=== PATIENT | female | born 1990 | race Caucasian/White ===

== ENCOUNTER → 2018-07-28 09:01 | Outpatient (CLI) | payer OTHER, SELFPAY ==
[2018-07-28 08:04] VITALS: BMI 39.2
[2018-07-28 09:27] LABS: Absolute Neutrophil Count 4.4 X10^3/uL (2.0-7.7); Basophil# 0.01 X10^3/uL; Basophil% 0.1 % (0-1); Eosinophils% 1.3 % (0-5); Hematocrit 38.3 % (37-47); Hemoglobin 12.5 g/dl (12.0-15.0); Lymphocyte % 31.7 % (19-41); Mean Corp Hgb Conc 32.6 g/gl (32-36); Mean Corpuscular Hgb 28.7 pg (27.0-32.0); Mean Corpuscular Volume 87.8 fL (81-99); Mean Platelet Vol. 9.2 fl (6.2-12.0); Monocyte# 0.62 X10^3/uL; Monocyte% 8.2 % (0-10); Neutrophil # 4.42 X10^3/uL (2.7-7.7); Neutrophil % 58.6 % (47-70); Platelet Count 340 K/mm3 (150-450); RBC Distribution Width CV 13.5 % (11.6-14.6); RBC Distribution Width SD 42.9 fl (35.1-43.9); Red Blood Count 4.36 M/mm3 (4.2-5.4); White Blood Count 7.6 K/mm3 (4.4-11.0)
[2018-07-28 09:31] LABS: POSITIVE COUNT NO; POSITIVE DIFFERENTIAL NO; POSITIVE MORPHOLOGY NO
[2018-07-28 09:41] LABS: Glucose Challenge Gest 1H 50g 119 mg/dL (70-140)
[2018-07-28 10:46] LABS: HIV - WCH Non-Reactive (Nonreactive); Rubella IgG 33.7 IU/mL
[2018-07-28 20:28] LABS: Chlamydia Trachomatis by PCR Negative (Negative); Neisserai gonorrhoeae by PCR Negative (Negative); Probe Check PASS; Sample Adequacy Control PASS; Specimen Processing Control PASS
[2018-07-29 08:53] LABS: HEPATITIS B SURFACE AG Negative (Negative)
[2018-07-30 07:03] LABS: Rapid Plasmin Reagin (RPR) NONREACTIVE (NONREACTIVE)
[2018-08-01 10:21] LABS: HPV Reflexed? NOT INDICATED
--- OUTSIDE RECORDS SUMMARY | 2018-09-22 14:54 | XMS RPT_ITS ---
:1990 Author Organization OHIP Support Name Relationship Address Phone NEREIDA RENAE Unavailable [id number] + [place] [address] SARAH MILES Unavailable [address] + [place] [address] [facility] Unavailable [address] + [place] [address] RENAE PADRON Unavailable Unavailable + SARAH MILES Unavailable [address] + [place] [address] [facility] Unavailable [address] + [place] [address] SARAH MILES Unavailable [address] + [place] [address] [facility] Unavailable [address] + [place] [address] SARAH MILES Unavailable [address] + [place] [address] [facility] Unavailable [address] + [place] [address] SARAH MILES Unavailable [address] + [place] [address] [facility] Unavailable [address] + [place] [address] RENAE PADRON Unavailable [address] + [address] [place] [address] RENAE PADRON Unavailable [address] + [address] [place] [address] SARAH MILES Unavailable [address] + [place] [address] TERRY MILES Unavailable [address] + [place] [address] DAREK MILES Unavailable [address] + [place] [address] Sarah Miles Unavailable Unavailable + NEREIDAJACILE BARONE Unavailable [address] + [address] [place] [address] JACIEL PADRONE Unavailable [address] + [address] [place] [address] SARAH MILES Unavailable [address] + [place] [address] DAREK MILES Unavailable [address] + [place] [address] JACIEL PADRONE Unavailable [address] + [address] [place] [address] RENAE PADRON Unavailable [address] + [place] [address] SARAH MILES Unavailable [address] + [place] [address] DAREK MILES Unavailable [address] + [place] [address] Care Team Providers Name Role Phone WENCESLAO PALOMARES Attending Unavailable KAYE REEL ASSEMBLER, (Rx)ANTWON Parsons Primary Care Unavailable DR. LORENA EDEN DO Attending Unavailable KAYE REEL ASSEMBLER, (Rx)ANTWON Parsons Primary Care Unavailable ZION KAPOOR, MS. BRADLEY Attending Unavailable AKYE REEL ASSEMBLER, (Rx)ANTWON Parsons Primary Care Unavailable PRESTON VERDE Attending Unavailable PROVIDER, UNKNOWN Referring Unavailable No, PCP Primary Care Unavailable Luis A Martinezon Attending Unavailable Rama, Lorena Referring Unavailable MarcanthonyLuis Aon Attending Unavailable Rama, Lorena Referring Unavailable Marcanthony, Dasia Attending Unavailable Rama, Lorena Primary Care Unavailable Marcanthony, Dasia Referring Unavailable MarcanthonyDasia Attending Unavailable Rama, Lorena Referring Unavailable Marcanthony, Dasia Attending Unavailable Rama, Lorena Primary Care Unavailable Marcanthony, Dasia Referring Unavailable PROBLEMS PROBLEMS DATE TYPE CONDITION / CODE ATTENDING STATUS SOURCE 08/07/2018 Unknown O23.40 - Marcanthony, Active Peggy Unspecified [facility] infection of Hospital urinary tract in Repository , unspecified trimester / O23.40(ICD-10) 08/06/2018 Unknown O99.211 - Obesity Marcanthony, Active Peggy complicating [facility] , first Hospital trimester / Repository O99.211(ICD-10) 08/06/2018 Unknown Z34.91 - Encounter Marcanthony, Active [place] for supervision of [facility] normal , Hospital unspecified, first Repository trimester / Z34.91(ICD-10) 08/06/2018 Unknown O23.41 - Marcanthony, Active [place] Unspecified [facility] infection of Hospital urinary tract in Repository , first trimester / O23.41(ICD-10) 07/28/2018 Unknown Z34.90 - Encounter Marcanthony, Active [place] for supervision of [facility] normal , Hospital unspecified, Repository unspecified trimester / Z34.90(ICD-10) 07/28/2018 Unknown Z12.4 - Encounter Michelle, Active Peggy for screening for [facility] malignant neoplasm Hospital of cervix / Repository Z12.4(ICD-10) 02/10/2018 Admitting Pnctr w/o fb of VERDEcocone Diagnosis left thumb w/o N System damage to nail, Repository init / S61.032A(ICD-10) 02/10/2018 Admitting Contact with VERDEcocone Diagnosis contaminated N System hypodermic needle, Repository init encntr / W46.1XXA(ICD-10) 02/10/2018 Admitting Allergy status to VERDEcocone Diagnosis narcotic agent N System status / Repository Z88.5(ICD-10) 02/10/2018 Admitting Contact w and VERDEcocone Diagnosis exposure to N System potentially Repository hazardous body fluids / Z77.21(ICD-10) PROCEDURES PROCEDURES No Procedure Records FoundRESULTS RESULTS 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 [address] [place] [address] OFFICE VISIT Date of Service: 08/11/18 MR#: [id number] Acct: [id number] Name: CIRILO MILES Rep #: [id number] : 1990 Provider: Dasia Martinez MD Age/Sex: 27/F Location: [facility] Status: Signed Intake Vital Signs08/11/18 Body Mass Index (BMI) 39.2 08/11/18 Blood Pressure 122/78 08/11/18 Blood Pressure 122/78 H Intake Visit Reasons: viability Chief Complaint: brown discharge Outpatient Coding Specialist Required: No Is patient in pain?: No Allergies morphine Allergy (Mild, Verified 08/11/18 08:17) Other Medications vitamin#30 30 mg iron-10 mg iron-folic acid 1 mg- omg3 capsule cap PO cap 07/28/18 [History Confirmed 08/06/18] acetaminophen 325 mg capsule 325 mg PO Q6H PRN 08/06/18 [History Confirmed 08/06/18] Last Menstral Period: 05/28/18 PFSH PFSH Surgical History History of wisdom tooth extraction, class II edentulism (Acute) Hx laparoscopic cholecystectomy (Acute) Family History Mother Seizures Brother Heart defect Social History Smoking Status: Never smoker alcohol intake: current details: pre substance use type: does not use caffeine: Yes what type of physical activity do you participate in: walking seatbelt use: always do you feel safe at home: Yes 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 DateName GA/Weeks Outcome Route Bth WeighInfant GeLabor LgtAnesthesiDel LocatProvider FOB t n h a n Delivery Date: No notes to display Delivery Date: On 07/28/18 @ 08:21 Dasia Martinez IOL oligo HPI viability: Details: CIRILO MILES is a 27 year old who presents for routine OB visit. OB Visit JEFFREY Calculator Estimated Delivery Date 03/23/19 Based on Ultrasound Date 08/06/18 Current WG 8w 0d Number 1 Expected Delivery Route/Plan Specific Issue/Plans flu vaccine: given tdap vaccine: [] rhogam: [] LARC form signed: [] labor support person: [] pain management: [] cut cord/dad catch: [] : [] PP control planned: [] discussed possible routes of delivery and associated risks: [] special requests: [] Initial Weight: Not Recorded Date Weight BP Urine PFHR FuHt Pres MCTX DilatioFetal SVisit NProvideComment rot ov n t ote r s EGA Ef Gluco faced se 07/28/1225 lb 112/70 8 6w 0d Visit Notes Visit Date: 08/11/18 fht seen IUP viable no abnormality, smal brown discharge likely cervical in origin. reassurance given fu as scheduled. Dasia Martinez MD on 08/11/18 Visit Date: 08/06/18 dating us now shows 7 w 2 d Dasia Martinez MD on 08/06/18 no vb cramping. Dasia Martinez MD on 08/06/18 Visit Date: 07/28/18 No visit notes to display ACOG First Trimester First Trimester: Desire for , Alcohol, Tobacco Cessation, Illicit/Recreational Drug/Substance Use, Intimate Partner Violence, Barriers to care, Unstable Housing, Communication Barriers, Environmental/Work Hazards, Anticipated Course of Care, Toxoplasmosis Precations, Use of Any medications, Sexual activity, Exercise, Dental Care, Sauna/Hot tub use, Seat Belt use, Childbirth classes/Hospital facilities, , Travel, Indications for US and Screening for Aneuploidy Diagnostics Diagnostics Labs Blood Type A POSITIVE 07/28/18 Antibody Screen NEGATIVE 07/28/18 Hct 38.3 % (37-47) 07/28/18 Hgb 12.5 g/dl (12.0-15.0) 07/28/18 Rubella IgG Antibody 33.7 IU/mL 07/28/18 RPR NONREACTIVE (NONREACTIVE) 07/28/18 Hep Bs Antigen Negative (Negative) 07/28/18 Chlam trachomat DNA PCR Negative (Negative) 07/28/18 N.gonorrhoeae DNA (PCR) Negative (Negative) 07/28/18 Glucose 1 Hr 50 gm 119 mg/dL (70-140) 07/28/18 Details: HIV: Urine Culture: Sequential Screen: NIPT Screen: Assessment AND Plan Problems 1. Vaginal bleeding during O46.90 Plan bedside ultrasound done reassuring. 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 [address] [place] [address] OFFICE VISIT Date of Service: 08/06/18 MR#: [id number] Acct: [id number] Name: CIRILO MIELS Rep #: [id number] : 1990 Provider: Dasia Martinez MD Age/Sex: 27/F Location: [facility] Status: Signed Intake Vital Signs08/06/18 Body Mass Index (BMI) 39.2 08/06/18 Height 5 ft 3 in 08/06/18 Weight: 226 lb 08/06/18 Body Mass Index (BMI) 40.0 08/06/18 Blood Pressure 114/60 Intake Visit Reasons: est ob Chief Complaint: est ob Outpatient Coding Specialist Required: No Is patient in pain?: No Allergies morphine Allergy (Mild, Verified 08/06/18 09:44) Other Medications vitamin#30 30 mg iron-10 mg iron-folic acid 1 mg- omg3 capsule cap PO cap 07/28/18 [History Confirmed 08/06/18] acetaminophen 325 mg capsule 325 mg PO Q6H PRN 08/06/18 [History Confirmed 08/06/18] Last Menstral Period: 05/28/18 Zika: Zika virus screening: Negative : No PFSH PFSH Surgical History History of wisdom tooth extraction, class II edentulism (Acute) Hx laparoscopic cholecystectomy (Acute) Family History Mother Seizures Brother Heart defect Social History Smoking Status: Never smoker alcohol intake: current details: pre substance use type: does not use caffeine: Yes what type of physical activity do you participate in: walking seatbelt use: always do you feel safe at home: Yes 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 DateName GA/Weeks Outcome Route Bth WeighInfant GeLabor LgtAnesthesiDel LocatProvider FOB t n h a n Delivery Date: No notes to display Delivery Date: On 07/28/18 @ 08:21 Dasia Martinez IOL oligo HPI est ob: Details: CIRILO MILES is a 27 year old who presents for routine OB visit. OB Visit JEFFREY Calculator Estimated Delivery Date 03/23/19 Based on Ultrasound Date 08/06/18 Current WG 7w 2d Number 1 Expected Delivery Route/Plan Specific Issue/Plans flu vaccine: given tdap vaccine: [] rhogam: [] LARC form signed: [] labor support person: [] pain management: [] cut cord/dad catch: [] : [] PP control planned: [] discussed possible routes of delivery and associated risks: [] special requests: [] Initial Weight: Not Recorded Date Weight BP Urine PrFHR FuHt Pres MoCTX DilationFetal StVisit NoProviderComments E ot v te GA G Effac lucose ed Visit Notes Visit Date: 08/06/18 dating us now shows 7 w 2 d Dasia Martinez MD on 08/06/18 no vb cramping. Dasia Martinez MD on 08/06/18 Visit Date: 07/28/18 No visit notes to display ACOG First Trimester First Trimester: Desire for , Alcohol, Tobacco Cessation, Illicit/Recreational Drug/Substance Use, Intimate Partner Violence, Barriers to care, Unstable Housing, Communication Barriers, Environmental/Work Hazards, Anticipated Course of Care, Toxoplasmosis Precations, Use of Any medications, Sexual activity, Exercise, Dental Care, Sauna/Hot tub use, Seat Belt use, Childbirth classes/Hospital facilities, , Travel, Indications for US and Screening for Aneuploidy Diagnostics Diagnostics Labs Blood Type A POSITIVE 07/28/18 Antibody Screen NEGATIVE 07/28/18 Hct 38.3 % (37-47) 07/28/18 Hgb 12.5 g/dl (12.0-15.0) 07/28/18 Rubella IgG Antibody 33.7 IU/mL 07/28/18 RPR NONREACTIVE (NONREACTIVE) 07/28/18 Hep Bs Antigen Negative (Negative) 07/28/18 Chlam trachomat DNA PCR Negative (Negative) 07/28/18 N.gonorrhoeae DNA (PCR) Negative (Negative) 07/28/18 Glucose 1 Hr 50 gm 119 mg/dL (70-140) 07/28/18 Details: HIV: Urine Culture: Sequential Screen: NIPT Screen: Assessment AND Plan Problems 1. Obesity affecting in first trimester O99.211 1 TM glucola nl, discussed healthy weight gain 2. Urinary tract infection in mother during first trimester of O23.41 macrobid. repeat ordered. 3. Normal in first trimester Z34.91 PRR JEFFREY 03/23/19 Darek Mayfield - Sarah Plan ACOG trimester education reviewed and updated. see problem list details for updated plan management information and see below for orders placed at this visit. GA appropriate handout given. Orders Orders: Medications New: Coding Level of Care Code OB Routine Diagnoses Obesity affecting in first trimester O99.211 Trimester: first trimester Urinary tract infection in mother during first trimester of O23.41 Trimester: first trimester Normal in first trimester Z34.91 Trimester: first trimester 08/06/18 1022 <Electronically signed by Dasia Martinez MD> Date Dasia Martinez MD Cosigner Signature: Date (if applicable) CC: Observed: 08/06/2018 Status: F Source: [place] CULTURE, URINE 12:00 AM [facility] REPOSITORY Urine Culture Below infection level. Probable contaminants. ORGANISM 1: Mixed Gram Positive Organisms [place] Count <1000 Performed By: #### M100.0650 #### [facility] [address] [place], [place], [address] CBC W/DIFF, AUTOMATED Collected: 07/28/2018 Status: F Source: [place] 9:08 AM [facility] REPOSITORY TYPE CODE TESTS RESULT OUT OF RANGE REFERENCE UNITS LAB L100.1000 4.4-11.0 K/mm3 Normal WBC 7.6 LAB L100.1200 4.2-5.4 M/mm3 Normal RBC 4.36 LAB L100.1300 12.0-15.0 g/dl Normal HGB 12.5 LAB L100.1400 37-47 % Normal HCT 38.3 LAB L100.1500 81-99 fL Normal MCV 87.8 LAB L100.1600 27.0-32.0 pg Normal MCH 28.7 LAB L100.1700 32-36 g/gl Normal MCHC 32.6 LAB L100.1810 11.6-14.6 % Normal RDW CV 13.5 LAB L100.1820 35.1-43.9 fl Normal RDW SD 42.9 LAB L100.1900 150-450 K/mm3 Normal PLT 340 LAB L100.2000 6.2-12.0 fl Normal MPV 9.2 LAB L100.2100 47-70 % Normal NEUT% 58.6 LAB L100.2200 19-41 % Normal LY% 31.7 LAB L100.2300 0-10 % Normal MONO% 8.2 LAB L100.2400 0-5 % Normal EO% 1.3 LAB L100.2500 0-1 % Normal BASO% 0.1 LAB L100.2550 0.0-0.9 % Normal IM GRAN % 0.100 Result Comment: IG% - Immature Granulocytes (promyelocytes, myelocytes and metamyelocytes) > 1% indicates that a LEFT SHIFT is Present. LAB L100.2620 2.0-7.7 X10 3/uL Normal Absolute Neut 4.4 LAB L100.2720 0.83-4.51 X10 3/ul Normal Absolute Lymph 2.40 Performed By: #### L100.0100 #### [facility] [address] [place], [address] GLUCOSE CHALLENGE GEST Collected: 07/28/2018 Status: F Source: [place] 1H 50G 9:08 AM [facility] REPOSITORY TYPE CODE TESTS RESULT OUT OF RANGE REFERENCE UNITS LAB L501.0250 70-140 mg/dL Normal GLU GEST 119 50g 1H Performed By: #### L501.0250 #### [facility] [address] [place], [place], [id number] TYPE AND SCREEN Collected: 07/28/2018 Status: F Source: [place] 9:08 AM [facility] REPOSIT[facility] Order Comment: Reason for Type AND Screen/Red Cells: TYPE CODE TESTS RESULT OUT OF RANGE REFERENCE UNITS LAB B10.0800 A Normal BLOOD TYPE GEL POSITIVE LAB B100.4000 Normal Antibody NEGATIVE Screen Performed By: #### B101.7450 #### [facility] [facility] [facility] [address] RUBELLA IGG Collected: 07/28/2018 Status: F Source: [place] 9:08 AM [facility] REPOSITORY TYPE CODE TESTS RESULT OUT OF RANGE REFERENCE UNITS LAB L509.4000 IU/mL Normal Rubella IgG 33.7 Result Comment: Antibody results Interpretation of Immune Status < 5 IU/ml Presumed Non-immune 5 - < 10 IU/ml Equivocal > or = 10 IU/ml Presumed Immune Performed By: #### L509.4000, L3890.6005 #### [facility] [address] [place], [place], [id number] HIV - [facility] Collected: 07/28/2018 Status: F Source: [place] 9:08 AM [facility] REPOSITORY TYPE CODE TESTS RESULT OUT OF RANGE REFERENCE UNITS LAB L3890.6005 Nonreactive Normal HIV - [facility] Non-Reactive Performed By: #### L509.4000, L3890.6005 #### [facility] [address] [facility] [id number] HEPATITIS B SURFACE Collected: 07/28/2018 Status: F Source: [place] AG 9:08 AM [facility] REPOSITORY TYPE CODE TESTS RESULT OUT OF RANGE REFERENCE UNITS LAB L3100.0400 Negative Normal HB Negative SURF AG Result Comment: Performed at: [address] [id number] Luncheonette Manager: Albert Gupta PhD, Phone: [phone] Performed By: #### L3100.0390 #### [facility] (refer to report for specific site) refer to report for address and phone number RAPID PLASMIN REAGIN Collected: 07/28/2018 Status: F Source: [place] (RPR) 9:08 AM [facility] REPOSITORY TYPE CODE TESTS RESULT OUT OF REFERENCE UNITS RANGE LAB L700.5000 NONREACTIVE NONREACTIVE Normal RPR Performed By: #### L700.5000 #### [facility] [address] 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 [place] [address] OFFICE VISIT Date of Service: 07/28/18 MR#: [id number] Acct: [id number] Name: CIRILO MILES Rep #: [id number] : 1990 Provider: Dasia Martinez MD Age/Sex: 27/F Location: [facility] Status: Signed Intake Vital Signs07/28/18 Height 5 ft 3.5 in 07/28/18 Weight: 225 lb 07/28/18 Body Mass Index (BMI) 39.2 07/28/18 Blood Pressure 112/70 Intake Visit Reasons: NOB - LMP 05/28 Chief Complaint: NEW OB Outpatient Coding Specialist Required: No Is patient in pain?: No Allergies morphine Allergy (Mild, Verified 07/28/18 08:06) Other Medications vitamin#30 30 mg iron-10 mg iron-folic acid 1 mg- omg3 capsule cap PO cap 07/28/18 [History Confirmed 07/28/18] Last Menstral Period: 05/28/18 Zika: Zika virus screening: Negative : No PFSH PFSH Surgical History History of wisdom tooth extraction, class II edentulism (Acute) Hx laparoscopic cholecystectomy (Acute) Family History Mother Seizures Brother Heart defect Social History Smoking Status: Never smoker alcohol intake: current details: pre substance use type: does not use caffeine: Yes what type of physical activity do you participate in: walking seatbelt use: always do you feel safe at home: Yes 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 DateName GA/Weeks Outcome Route Bth WeighInfant GeLabor LgtAnesthesiDel LocatProvider FOB t n h a n Delivery Date: No notes to display Delivery Date: On 07/28/18 @ 08:21 Dasia Martinez IOL oligo HPI NOB - LMP 05/28: Details: CIRILO MILES is a 27 year old who presents for New OB visit. OB Visit JEFFREY Calculator Estimated Delivery Date 03/04/19 Based on LMP (certain) 05/28/18 Current WG 8w 5d Number 1 Comments: Limited transvaginal ultrasound performed to confirm EDC and viability. CRL is 4 mm measuring 5-6 weeks which is not consistent with LMP. FHTs present. small subchorionic hemorrhage Expected Delivery Route/Plan Specific Issue/Plans flu vaccine: given tdap vaccine: [] rhogam: [] LARC form signed: [] labor support person: [] pain management: [] cut cord/dad catch: [] : [] PP control planned: [] discussed possible routes of delivery and associated risks: [] special requests: [] Initial Weight: Not Recorded Date Weight BP Urine PrFHR FuHt Pres MoCTX DilationFetal StVisit NoProviderComments E ot v te GA G Effac lucose ed Menstrual History Last Menstral Period: 05/28/18 Reported LMP: definite Normal amount/duration: Yes On hormonal BC at conception: No Antepartum Record Genetic Screening: Congenital Heart Defect: Other, Neural Tube Defect: Other, Hemoglobinopathy Or Carrier: Other, Cystic Fibrosis: Other, Chromosome Abnormality: Other, Anibal-Sachs: Other, Hemophilia: Other, Intellectual Disability/Autism: Other, Recurrent Loss/Stillbirth: Other, Other Structural Defect: Other, Other Genetic Disease: Other, Maternal Metabolic Disorder: Other Infection History: Live with someone with TB or Exposed to TB: No, Patient or Partner has history of Genital Herpes: No, Rash or Viral illness since last mentrual period: No, Prior GBS-Infected child: No, History of STD: No, HIV Infection: No, History of Hepatitis: No, Recent travel outside of [place]: No, Concern for Hep exposure: No, Varicella immune: Yes Medical History Medical History: Positive: Operations/hospitalizations, Negative: Diabetes, Hypertension, Heart disease, Auto-immune disorder, Kidney disease/UTI, Neurologic/epilepsy, Psychiatric, Depression/ depression, Hepatitis/liver disease, Varicosities/phlebitis, Thyroid dysfunction, Trauma/domestic violence, History of blood transfusions, D (Rh) Sensitized, Pulmonary (e.g.,TB,Asthma), Seasonal allergies, Drug/latex allergies/reactions, Breast, Delivery Crew Worker surgery, Anesthetic complications, History of abnormal pap, Uterine anomaly/aracely, Infertility, Anti-retroviral treatment, Relevant family history, Other ACOG First Trimester First Trimester: Desire for , Alcohol, Tobacco Cessation, Illicit/Recreational Drug/Substance Use, Intimate Partner Violence, Barriers to care, Unstable Housing, Communication Barriers, Environmental/Work Hazards, Anticipated Course of Care, Nurtrition and weight gain, Toxoplasmosis Precations, Use of Any medications, Sexual activity, Exercise, Dental Care, Sauna/Hot tub use, Seat Belt use, Childbirth classes/Hospital facilities, , Travel, Indications for US and Screening for Aneuploidy ROS Const Denies fever(s), Reports system reviewed and no additional complaints, except as docu, Reports fatigue Eyes Reports system reviewed and no additional complaints, except as docu ENT Reports system reviewed and no additional complaints, except as docu Card Denies chest pain, Denies shortness of breath Resp Reports system reviewed and no additional complaints, except as docu, Denies shortness of breath, Denies cough GI Reports nausea, Denies abdominal pain Reports system reviewed and no additional complaints, except as docu Musc Reports system reviewed and no additional complaints, except as docu Skin/Breast Reports system reviewed and no additional complaints, except as docu Neuro Yes system reviewed and no additional complaints, except as docu Psych Reports system reviewed and no additional complaints, except as docu Endo Reports fatigue, Reports system reviewed and no additional complaints, except as docu Exam Const General: healthy appearing, comfortable, no acute distress Orientation: alert [facility] Head: normal to inspection, atraumatic, normocephalic Ears: external ears normal, hearing grossly normal bilaterally Nose: nares normal, external nose normal Mouth: oral mucosae normal Teeth and gingiva: dentition normal Eyes General: appearance normal, both eyes and all related structures Neck Neck: no lymphadenopathy, supple, normal visual inspection Thyroid: thyroid normal Chest Chest palpation AND inspection: normal inspection of the chest Breast inspection: normal inspection of the breasts, normal inspection of the axillae Breast palpation: normal palpation of the breasts, normal palpation of the axillae Resp Effort AND Inspection: normal respiratory effort GI Inspection: normal to inspection Palpation: soft, no hepatosplenomegaly General: bladder normal to palpation External Female Exam: normal external appearance, normal appearance of the urethra Urethra: normal appearance of the urethra Speculum Exam - Vagina: normal appearance of the vagina, normal vaginal discharge Speculum Exam - Cervix: normal appearance of the cervix Bimanual Exam- Vagina AND Uterus: bladder normal to palpation, normal bimanual exam, uterus non-tender, other Bimanual Exam- Adnexa, other: adnexae non-tender Skin General: no rashes or lesions noted Neuro Motor: muscle tone normal throughout, no movement abnormalities noted Extrem General: normal to inspection, full ROM Assessment AND Plan Problems 1. Obesity affecting in first trimester O99.211 1 TM glucola, discussed healthy weight gain 2. Normal in first trimester Z34.91 JEFFREY 03/04/19 PC Darek Santiago - Sarah Plan Patient oriented to practice and discussed care expectations and screenings. ACOG book offered to patient. Discussed routine and specially indicated labs if needed- patient consents to testing. see problem list details for plan information. Optional screening including carrier screenings, neural tube defect screening, sequential screening, and NIPT screening offered to patient and patient chose: considering Orders Orders: Supplemental Info ACOG book given and patient encouraged to read about nutrition, exercise, weight gain, and food avoidance in . Coding Level of Care Code OB Routine Diagnoses Obesity affecting in first trimester O99.211 Trimester: first trimester Normal in first trimester Z34.91 Trimester: first trimester 07/28/18 0852 <Electronically signed by Dasia Martinez MD> Date Dasia Martinez MD Cosigner Signature: Date (if applicable) CC: CT/NG [facility] BY PCR Collected: 07/28/2018 Status: F Source: [place] 8:10 AM [facility] REPOSITORY TYPE CODE TESTS RESULT OUT OF RANGE REFERENCE UNITS LAB L8200.2100 Negative Normal Chlam Negative Trac PCR LAB L8200.2200 Negative Normal NG by Negative PCR Performed By: #### L8200.2000 #### [facility] [address] [place], [address] Observed: 07/28/2018 Status: F Source: [place]GGY CULTURE, URINE 8:10 AM [facility] REPOSITORY Urine Culture Below infection level. ORGANISM 1: Staphylococcus species [place] Count <1000 Performed By: #### M100.0650 #### [facility] [address] [place], [address] PAP I-G W/RFX Collected: 07/28/2018 Status: F Source: [place]GG[place] HRHPV-APTIMA 8:10 AM [facility] REPOSITORY Order Comment: CYTOLOGY INFORMATION: - CLINICAL INFORMATION: - DATE LMP/MENOPAUSE: - COLLECTION VIAL: Thin Prep Vial - CLINICAL DATA ANALYST SOURCE: CERVICAL - COLLECTION TECHNIQUE: CX BROOM ONLY Specimen Comment: [id number] Specimen Comment: Source.............Cervix Specimen Comment: Other.............. Specimen Comment: No. of containers..01 ThinPrep Vial TYPE CODE TESTS RESULT OUT OF RANGE REFERENCE UNITS LAB L7400.0800 . Normal DIAGN Comment Result Comment: NEGATIVE FOR INTRAEPITHELIAL LESION AND MALIGNANCY. LAB L7400.0900 . Normal ADEQ Comment Result Comment: Satisfactory for evaluation. No endocervical component is identified. An endocervical component is not commonly seen in the patient. LAB L7400.1400 . Normal PERFORM Comment Result Comment: [address], Railroad Car Checker (ASCP) LAB L7400.5285 . Normal TEST METHOD Comment Result Comment: This liquid based ThinPrep(R) pap test was screened with the use of an image guided system. LAB L7400.2600 . Normal . COMM LAB L7400.2700 . Normal PAPSMR Comment Result Comment: The Pap smear is a screening test designed to aid in the detection of premalignant and malignant conditions of the uterine cervix. It is not a diagnostic procedure and should not be used as the sole means of detecting cervical cancer. Both false-positive and false-negative reports do occur. LAB L7400.2800 . Normal HPV RFLX Comment Result Comment: The HPV DNA reflex criteria were not met with this specimen result therefore, no HPV testing was performed. Performed at: - [facility] [id number] Luncheonette Manager: Corazon Jose MD, Phone: [phone] Performed By: #### L7400.0353 #### [facility] (refer to report for specific site) refer to report for address and phone number XR FOOT MINIMUM 3 Observed: 02/08/2018 Status: F Source: [employer] VIEWS LEFT 7:13 AM [facility] REPOSITORY ORIGINAL XR FOOT MINIMUM 3 VIEWS LEFT CLINICAL STATEMENT: pain. COMPARISON: None FINDINGS: No acute fracture or dislocation is identified. The joint spaces are maintained. There is no radiopaque foreign body. Os trigonum is present. IMPRESSION: No acute fracture or dislocation. Interpreted By: Allyssa Hoskins MD Preliminary Report By: Allyssa Hoskins MD Electronically Signed By: Allyssa Hoskins MD Dictated Date: 02/08/2018 11:16:56 AM Prelim Date: 02/08/2018 11:16:56 AM Sign Date: 02/08/2018 11:17:32 AM Observed: 12/19/2017 Status: F Source: [employer] BSA 9:59 PM [facility] REPOSITORY . MICRO - Microbiology PROCEDURE: Beta Strep Antigen with Cult if Ind [*1] SOURCE: Throat BODY SITE: COLLECTED DATE/TIME: 12/19/2017 21:59 EDT RECEIVED DATE/TIME: 12/19/2017 22:06 EDT START DATE/TIME: 12/19/2017 22:06 EDT FREE TEXT SOURCE: FINAL REPORTS Final Report [] Verified Date/Time/Personnel: 12/19/2017 22:23 EDT Antigen Screen: Negative for Group A Strep. Culture confirmation to follow. COMMENT: Recommendations suggest that all negative results be confirmed with culture. Performing Locations *1: This test was performed at: [address] Performed By: #### BSA #### [address] [address] Observed: 12/19/2017 Status: F Source: [facility] 9:59 PM [facility] REPOSITORY . MICRO - Microbiology PROCEDURE: Rapid Influenza A+B Screen w Cult if Ind [*1] SOURCE: Nasopharyngeal BODY SITE: COLLECTED DATE/TIME: 12/19/2017 21:59 EDT RECEIVED DATE/TIME: 12/19/2017 22:06 EDT START DATE/TIME: 12/19/2017 22:06 EDT FREE TEXT SOURCE: FINAL REPORTS Final Report [] Verified Date/Time/Personnel: 12/19/2017 22:35 EDT Influenza Virus Type A Specimen is positive for the presence of influenza A antigen. . Specimen is negative for the presence of influenza B antigen. . A positve result does not rule out co-infections with other pathogens or identify any specific influenza virus subtype. If the current local prevalence of the influenza virus is low, the predictive value of a positive screening test is greatly diminished. Positive screening results therefore should be interpreted along with clinical symptoms. . Detection by immunofluorescence technology. This organism causes a reportable disease. Infection Control has been notified. Results have been reported to the [place] [facility]. Performing Locations *1: This test was performed at: [address] Performed By: #### RFLU #### [address] [address] Observed: 12/19/2017 Status: F Source: [facility] 9:54 PM [facility] REPOSITORY . MICRO - Microbiology PROCEDURE: Culture Beta Strep Only [O1 *1] SOURCE: Throat BODY SITE: COLLECTED DATE/TIME: 12/19/2017 21:54 EDT RECEIVED DATE/TIME: 12/19/2017 22:23 EDT START DATE/TIME: 12/19/2017 22:23 EDT FREE TEXT SOURCE: FINAL REPORTS Final Report [] Verified Date/Time/Personnel: 12/22/2017 07:11 EDT No Beta Strep isolated at 48hrs. PRELIMINARY REPORTS Preliminary Report [] Verified Date/Time/Personnel: 12/21/2017 11:01 EDT No beta Strep isolated at 24 hours. Order Comments O1: Culture Beta Strep Only Order added by [email or web address] Performing Locations *1: This test was performed at: [facility], [address] [place] [address], [address] [place] [address] Performed By: #### BSO #### [place] [address] ALLERGIES ALLERGIES DATE TYPE / CODE NAME / CODE REACTION SEVERITY SOURCE 08/11/2018 Drug morphine/F00 Other [facility] Allergy/4160 [id number]([facility] 84990(SNOMED RM) Repository CT) ENCOUNTERS ENCOUNTERS ADMIT/DISCHARGE ACCOUNT NUMBER ADMITTING ENCOUNTER LOCATION SOURCE CLASS 08/11/2018/08/11/20 [id number] Ambulatory BMSBuilding: [place] 18 BMS.[facility] Repository 08/06/2018 [id number] Ambulatory [facility] ding:[facility] Repository 08/06/2018/08/06/20 [id number] Ambulatory BMSBuilding: [place] 18 BMS.[facility] Repository 07/28/2018 [id number] Ambulatory [facility] ding:PAVLAB Repository 07/28/2018/07/28/20 [id number] Ambulatory BMSBuilding: [place] 18 BMS.[facility] Repository 03/16/2018/03/16/20 [id number] Ambulatory AULTMANBuild [place]ny 18 ing:[facility] Repository 02/10/2018 [id number] Emergency [address]in[address] [place] [address] ERRoom: System [id number]: Repository [id number] 02/08/2018/02/09/20 [id number] Ambulatory DONNY [address] ding:[facility] Repository 12/19/2017/12/20/19 [id number] Emergency BBuilding:ER [address] Repository PAYERS PAYERS ENCOUNTER GUARANTOR PAYER SUBSCRIBER SOURCE 08/11/2018 CIRILO Romano Primary SARAH [id number] Insurance:MEDICAL MUTUAL JOHNSONDOB: [facility] Samuel HOLDER Number: [id number] [address]Azz: [id number] Repository Date:[id number] [address] () [address], [place] [address]HK: 08/11/2018 Secondary Insurance:SELF NOT GIVENUNK [place] PAY INSURANCEPolicy Community Number: Effective Hospital Date:2018-08-11 Repository 08/06/2018 CIRILO Romano Primary SARAH [id number] Insurance:MEDICAL MUTUAL JOHNSONDOB: [facility] WILLIS [facility] Number: [id number] [facility] [address]Hox: [id number] Repository Date:[id number] BOX () [address] [place], [place] [address]WP: 08/06/2018 Secondary Insurance:SELF NOT GIVENUNK [place] PAY INSURANCEPolicy Community Number: Effective Hospital Date:2018-08-06 Repository 08/06/2018 CIRILO Romano Primary SARAH [id number] Insurance:MEDICAL MUTUAL JOHNSONDOB: [facility] WILLIS [facility]Tr[facility] Health Number: [id number] View Regional Medical Center [address]Nrf: [id number] Repository Date:[id number] BOX () [address] [place] [phone]: 08/06/2018 Secondary Insurance:SELF NOT GIVENUNK [place] PAY INSURANCEPolicy Community Number: Effective Hospital Date:2018-08-06 Repository 07/28/2018 CIRILO Romano Primary SARAH [id number] Insurance:MEDICAL MUTUAL RADHADOB: [facility] WILLIS [facility]DER[facility] Number: [id number] View [facility] [address]Mie: [id number] Repository Date:[id number] BOX () [address] [place] [address]CN: 07/28/2018 Secondary Insurance:SELF NOT GIVENUNK [place] PAY INSURANCEPoly Community Number: Effective Hospital Date:2018-07-28 Repository 07/28/2018 [facility] SARAH Laguerreoster [id number] Insurance:MEDICAL MUTUAL JOHNSONDOB: [facility] [place] Number: [id number] [facility] [place] [address]Iew: [id number] Repository Date:6817-14-17KN BOX () [address] [place] [address]ZP: 07/28/2018 Secondary Insurance:SELF NOT GIVENUNK [place] PAY INSURANCEPolicy Community Number: Effective Hospital Date:2018-07-12 Repository [facility]/16/2018 [facility]: [facility] 6018Policy Number: [id number] Repository [place], [id number] [address] [place] [address]Eec: Date:2018-03-16 - [place] [id number] Name:[facility] [id number]: 330) (HP) [address] [place] [address] [phone]: (HP) () 02/10/2018 [facility]:Workers JohnsonDOB: System [id number] CompensationPolicy [id number] Repository [address] RdDalton, Number: Effective Date: [place] [address]Ndo: (HP) 02/08/2018 [facility]: Insurance:MEDICAL MUTUAL JOHNSONDOB: [facility] [id number] 6018Policy Number: [id number] Repository [place], [id number] [address] [place] [address]Swy: Date:2018-02-08 - [place] [id number] Name:BPO [id number]: (330) (HP) [address] [place] [address] [phone] 13441KE: (HP) (WP) 12/19/2017 CIRILO Villagran [facility] JOHNSONDOB: Insurance:[employer] [place] JOHNSONDOB: [facility] [id number] 6018Policy Number: [id number] Repository [facility] [place], [id number] [facility] [address]Nij: Date:2017-12-19 - [place] [id number] Name:BPO [id number]: (330) (HP) [address] [place] [address] [phone]: (HP) (WP)
== END ==
PROVIDERS: Family Provider Family Medicine; PCP Family Medicine; Referring Provider Obstetrics & Gynecology; Visit Provider Obstetrics & Gynecology
DX: Z34.90 Encounter for supervision of normal pregnancy, unspecified, unspecified trimester (principal)
CPT/HCPCS: 36415; 82950; 85025; 86592; 86703; 86762; 86850; 86900; 87086; 87088; 87340; 87491; 87591; 87624; 88175; G0145

== ENCOUNTER → 2018-08-06 17:53 | Outpatient (CLI) | payer OTHER, SELFPAY ==
[2018-08-06 10:30] VITALS: BMI 39.2
== END ==
PROVIDERS: Family Provider Family Medicine; PCP Family Medicine; Referring Provider Obstetrics & Gynecology; Visit Provider Obstetrics & Gynecology
DX: O23.40 Unspecified infection of urinary tract in pregnancy, unspecified trimester (principal); Z3A.00 Weeks of gestation of pregnancy not specified
CPT/HCPCS: 87086; 87088

== ENCOUNTER → 2018-12-27 09:54 | Outpatient (CLI) | payer OTHER, SELFPAY ==
[2018-12-27 09:43] VITALS: BMI 40.5
[2018-12-27 11:08] LABS: Glucose Challenge Gest 1H 50g 111 mg/dL (70-140)
[2018-12-27 15:35] LABS: Absolute Lymphocyte Count 2.01 X10^3/ul (0.83-4.51); Absolute Neutrophil Count 6.1 X10^3/uL (2.0-7.7); Basophil# 0.01 X10^3/uL; Basophil% 0.1 % (0-1); Eosinophil# 0.09 X10^3/uL; Hemoglobin 11.5 g/dl (12.0-15.0); Lymphocyte # 2.01 X10^3/ul (4.0); Lymphocyte % 22.7 % (19-41); Mean Corp Hgb Conc 31.9 g/gl (32-36); Mean Corpuscular Hgb 29.1 pg (27.0-32.0); Mean Corpuscular Volume 91.1 fL (81-99); Mean Platelet Vol. 9.8 fl (6.2-12.0); Monocyte# 0.63 X10^3/uL; Monocyte% 7.1 % (0-10); Neutrophil % 68.9 % (47-70); Platelet Count 291 K/mm3 (150-450); RBC Distribution Width CV 14.6 % (11.6-14.6); RBC Distribution Width SD 48.9 fl (35.1-43.9); Red Blood Count 3.95 M/mm3 (4.2-5.4); White Blood Count 8.9 K/mm3 (4.4-11.0)
[2018-12-27 15:42] LABS: POSITIVE COUNT NO; POSITIVE DIFFERENTIAL NO; POSITIVE MORPHOLOGY NO
== END ==
PROVIDERS: Family Provider Family Medicine; PCP Family Medicine; Referring Provider Nurse Practitioner Women's Health; Visit Provider Nurse Practitioner Women's Health
DX: Z34.90 Encounter for supervision of normal pregnancy, unspecified, unspecified trimester (principal)
CPT/HCPCS: 36415; 82950; 85025

== ENCOUNTER 2019-01-04 11:30 | Outpatient (CLI) | payer OTHER, SELFPAY ==
[2018-12-27 09:43] VITALS: BMI 40.5
[2019-01-04 11:49] VITALS: BMI 42.1
[2019-01-04 12:12] LABS: Hematocrit 32.6 % (37-47); Hemoglobin 10.5 g/dl (12.0-15.0); Mean Corp Hgb Conc 32.2 g/gl (32-36); Mean Corpuscular Hgb 28.8 pg (27.0-32.0); Mean Corpuscular Volume 89.6 fL (81-99); Mean Platelet Vol. 9.5 fl (6.2-12.0); Platelet Count 279 K/mm3 (150-450); RBC Distribution Width CV 14.4 % (11.6-14.6); RBC Distribution Width SD 46.1 fl (35.1-43.9); Red Blood Count 3.64 M/mm3 (4.2-5.4)
[2019-01-04 12:12] LABS: Protein, Urine (Random) 17.1 mg/dL (<11.9); Protein:Creat Ratio 176 mg/g CRE (0-200)
[2019-01-04 12:14] LABS: Scan Indicated on CBC? Y/N NO
[2019-01-04 12:21] LABS: Partial Thromboplast Time 26.9 Seconds (24.1-36.2)
[2019-01-04 12:27] LABS: AST(SGOT) 12 U/L (15-37); Alanine Aminotransfer ALT/SGPT 16 U/L (13-56); EST Glomerular Filtration Rate 203 mL/min (>60); Est Glom Filt Rate - Afr Amer 246 mL/min (>60); Estimated Creatinine Clearance 173.21 ml/min; Uric Acid 3.1 mg/dL (2.6-6.0)
--- NOTE | 2019-01-05 03:09 | OB.TRI.PN_ITS ---
Progress Notes Date of Service: 01/04/19 Progress Note: She presented for headache and epigastric pain and nausea. Normal blood pressures and negative proteinuria and normal preeclampsia labs were present. Patient was evaluated by myself and headache was improving spontaneously. Patient denies any vaginal bleeding or loss of fluid heart tones 140 moderate variability reactive no decelerations category I tracing [place]: regular- none Assessment and plan 28-year-old with headache negative preeclampsia work-up likely secondary to reassurance given reviewed preeclampsia precautions follow-up in the office as regularly scheduled Laboratory Studies: Laboratory Tests 01/04/19 01/04/19 01/04/19 Range/Units 12:00 12:00 12:00 WBC 8.0 (4.4-11.0) K/mm3 RBC 3.64 L (4.2-5.4) M/mm3 Hgb 10.5 L (12.0-15.0) g/dl Hct 32.6 L (37-47) % MCV 89.6 (81-99) fL MCH 28.8 (27.0-32.0) pg MCHC 32.2 (32-36) g/gl RDW 14.4 (11.6-14.6) % RDW Differential 46.1 H (35.1-43.9) fl Plt Count 279 (150-450) K/mm3 MPV 9.5 (6.2-12.0) fl PT 13.0 (11.7-14.9) SECONDS INR 1.0 APTT 26.9 (24.1-36.2) Seconds Creatinine 0.40 L (0.55-1.02) mg/dL Estim Creat Clear Calc 173.21 ml/min Est GFR (MDRD) Af Amer 246 (>60) mL/min Est GFR (MDRD) Non-Af 203 (>60) mL/min Uric Acid 3.1 (2.6-6.0) mg/dL AST 12 L (15-37) U/L ALT 16 (13-56) U/L U Random Total Protein (<11.9) mg/dL Urine Creatinine (NO RANGE EST.) mg/dL Protein/Creatinin Ratio (0-200) mg/g CRE 01/04/19 Range/Units 11:55 WBC (4.4-11.0) K/mm3 RBC (4.2-5.4) M/mm3 Hgb (12.0-15.0) g/dl Hct (37-47) % MCV (81-99) fL MCH (27.0-32.0) pg MCHC (32-36) g/gl RDW (11.6-14.6) % RDW Differential (35.1-43.9) fl Plt Count (150-450) K/mm3 MPV (6.2-12.0) fl PT (11.7-14.9) SECONDS INR APTT (24.1-36.2) Seconds Creatinine (0.55-1.02) mg/dL Estim Creat Clear Calc ml/min Est GFR (MDRD) Af Amer (>60) mL/min Est GFR (MDRD) Non-Af (>60) mL/min Uric Acid (2.6-6.0) mg/dL AST (15-37) U/L ALT (13-56) U/L U Random Total Protein 17.1 H (<11.9) mg/dL Urine Creatinine 96.90 (NO RANGE EST.) mg/dL Protein/Creatinin Ratio 176 (0-200) mg/g CRE
== END 2019-01-04 13:05 | disposition home or self-care (01) ==
LOC: WPOUT 11:44 → OBT 11:45
PROVIDERS: Family Provider Family Medicine; PCP Family Medicine; Referring Provider Obstetrics & Gynecology; Visit Provider Obstetrics & Gynecology
DX: O99.89 Other specified diseases and conditions complicating pregnancy, childbirth and the puerperium (principal); R51 Headache; O26.899 Other specified pregnancy related conditions, unspecified trimester; R10.13 Epigastric pain; Z3A.00 Weeks of gestation of pregnancy not specified
CPT/HCPCS: 36415; 59025; 59050; 82565; 82570; 84156; 84450; 84460; 84550; 85027; 85610; 85730; 99218; G0378

== ENCOUNTER 2019-02-22 13:55 | Outpatient (CLI) | payer OTHER, SELFPAY ==
[2019-02-22 13:44] VITALS: BMI 42.1
[2019-02-22 14:25] VITALS: BMI 43.7
[2019-02-22 14:34] LABS: Protein, Urine (Random) 25.2 mg/dL (<11.9); Protein:Creat Ratio 205 mg/g CRE (0-200)
[2019-02-22 14:50] LABS: Hematocrit 33.3 % (37-47); Hemoglobin 10.7 g/dl (12.0-15.0); Mean Corp Hgb Conc 32.1 g/gl (32-36); Mean Corpuscular Hgb 28.5 pg (27.0-32.0); Mean Corpuscular Volume 88.6 fL (81-99); Mean Platelet Vol. 9.3 fl (6.2-12.0); Platelet Count 291 K/mm3 (150-450); RBC Distribution Width CV 15.6 % (11.6-14.6); Red Blood Count 3.76 M/mm3 (4.2-5.4); Scan Indicated on CBC? Y/N NO; White Blood Count 9.2 K/mm3 (4.4-11.0)
[2019-02-22 14:54] LABS: Prothrombin Time (Protime)PT. 12.5 SECONDS (11.7-14.9)
[2019-02-22 14:55] LABS: Partial Thromboplast Time 26.8 Seconds (24.1-36.2)
[2019-02-22 15:01] LABS: AST(SGOT) 13 U/L (15-37); Alanine Aminotransfer ALT/SGPT 18 U/L (13-56); Creatinine, Serum 0.39 mg/dL (0.55-1.02); EST Glomerular Filtration Rate 206 mL/min (>60); Est Glom Filt Rate - Afr Amer 249 mL/min (>60); Estimated Creatinine Clearance 177.65 ml/min; Uric Acid 3.3 mg/dL (2.6-6.0)
--- NOTE | 2019-02-28 04:27 | OB.TRI.PN_ITS ---
Progress Notes Progress Note: elevated bp initially here to r/o preeclampsia repeat bps WNL patient asymptomatic fht 130 moderate variability reactive no decelerations category I tracing [place]: no regular a/p elevated bp now reassuring, negative lab work fu in office as scheduled reviewed preeclampsia precautions Laboratory Studies: Laboratory Tests 02/22/19 02/22/19 02/22/19 Range/Units 14:35 14:35 14:35 WBC 9.2 (4.4-11.0) K/mm3 RBC 3.76 L (4.2-5.4) M/mm3 Hgb 10.7 L (12.0-15.0) g/dl Hct 33.3 L (37-47) % MCV 88.6 (81-99) fL MCH 28.5 (27.0-32.0) pg MCHC 32.1 (32-36) g/gl RDW 15.6 H (11.6-14.6) % RDW Differential 50.0 H (35.1-43.9) fl Plt Count 291 (150-450) K/mm3 MPV 9.3 (6.2-12.0) fl PT 12.5 (11.7-14.9) SECONDS INR 1.0 APTT 26.8 (24.1-36.2) Seconds Creatinine 0.39 L (0.55-1.02) mg/dL Estim Creat Clear Calc 177.65 ml/min Est GFR (MDRD) Af Amer 249 (>60) mL/min Est GFR (MDRD) Non-Af 206 (>60) mL/min Uric Acid 3.3 (2.6-6.0) mg/dL AST 13 L (15-37) U/L ALT 18 (13-56) U/L U Random Total Protein (<11.9) mg/dL Urine Creatinine (NO RANGE EST.) mg/dL Protein/Creatinin Ratio (0-200) mg/g CRE 02/22/19 Range/Units 14:17 WBC (4.4-11.0) K/mm3 RBC (4.2-5.4) M/mm3 Hgb (12.0-15.0) g/dl Hct (37-47) % MCV (81-99) fL MCH (27.0-32.0) pg MCHC (32-36) g/gl RDW (11.6-14.6) % RDW Differential (35.1-43.9) fl Plt Count (150-450) K/mm3 MPV (6.2-12.0) fl PT (11.7-14.9) SECONDS INR APTT (24.1-36.2) Seconds Creatinine (0.55-1.02) mg/dL Estim Creat Clear Calc ml/min Est GFR (MDRD) Af Amer (>60) mL/min Est GFR (MDRD) Non-Af (>60) mL/min Uric Acid (2.6-6.0) mg/dL AST (15-37) U/L ALT (13-56) U/L U Random Total Protein 25.2 H (<11.9) mg/dL Urine Creatinine 123.00 (NO RANGE EST.) mg/dL Protein/Creatinin Ratio 205 H (0-200) mg/g CRE
== END 2019-02-22 15:40 | disposition home or self-care (01) ==
LOC: WPOUT 14:02 → WP 14:03
PROVIDERS: Family Provider Family Medicine; PCP Family Medicine; Referring Provider Obstetrics & Gynecology; Visit Provider Obstetrics & Gynecology
DX: O16.9 Unspecified maternal hypertension, unspecified trimester (principal); Z3A.00 Weeks of gestation of pregnancy not specified
CPT/HCPCS: 36415; 59025; 59050; 82565; 82570; 84156; 84450; 84460; 84550; 85027; 85610; 85730; 99218; G0378

== ENCOUNTER → 2019-02-22 17:11 | Outpatient (CLI) | payer OTHER, SELFPAY ==
[2019-02-22 14:25] VITALS: BMI 43.7
== END ==
PROVIDERS: Family Provider Family Medicine; PCP Family Medicine; Referring Provider Nurse Practitioner Women's Health; Visit Provider Nurse Practitioner Women's Health
DX: N89.8 Other specified noninflammatory disorders of vagina (principal)
CPT/HCPCS: 87070; 87205

== ENCOUNTER → 2019-03-02 12:00 | Outpatient (CLI) | payer OTHER, SELFPAY ==
[2019-03-02 11:12] VITALS: BMI 43.7
[2019-03-02 12:21] LABS: Absolute Neutrophil Count 5.8 X10^3/uL (2.0-7.7); Basophil# 0.01 X10^3/uL; Basophil% 0.1 % (0-1); Eosinophil# 0.04 X10^3/uL; Eosinophils% 0.5 % (0-5); Hematocrit 33.9 % (37-47); Lymphocyte % 22.4 % (19-41); Mean Corp Hgb Conc 32.4 g/gl (32-36); Mean Corpuscular Hgb 28.6 pg (27.0-32.0); Mean Corpuscular Volume 88.3 fL (81-99); Mean Platelet Vol. 9.3 fl (6.2-12.0); Monocyte# 0.75 X10^3/uL; Monocyte% 8.8 % (0-10); Neutrophil # 5.78 X10^3/uL (2.7-7.7); Platelet Count 276 K/mm3 (150-450); RBC Distribution Width CV 15.7 % (11.6-14.6); RBC Distribution Width SD 50.2 fl (35.1-43.9); Red Blood Count 3.84 M/mm3 (4.2-5.4); White Blood Count 8.5 K/mm3 (4.4-11.0)
[2019-03-02 12:25] LABS: POSITIVE COUNT NO; POSITIVE DIFFERENTIAL NO; POSITIVE MORPHOLOGY NO
[2019-03-02 13:23] LABS: ALB/GLOB Ratio 0.6 RATIO (0.9-2.4); AST(SGOT) 18 U/L (15-37); Alanine Aminotransfer ALT/SGPT 19 U/L (13-56); Albumin, Serum 2.5 g/dL (3.2-5.0); Alkaline Phosphatase 116 U/L (45-117); Anion Gap 9 (5-15); BUN 10 mg/dL (7-18); Calcium,Total 8.7 mg/dL (8.5-10.1); Chloride 105 mmol/L (98-107); Creatinine, Serum 0.38 mg/dL (0.55-1.02); EST Glomerular Filtration Rate 211 mL/min (>60); Est Glom Filt Rate - Afr Amer 255 mL/min (>60); Globulin 4.4 g/dL (2.2-4.2); Glucose 93 mg/dL (74-106); LDH 179 U/L (84-246); Potassium 3.6 mmol/L (3.5-5.1); Protein, Total 6.9 g/dL (6.4-8.2); Sodium Level 135 mmol/L (136-145); Uric Acid 3.4 mg/dL (2.6-6.0)
[2019-03-02 14:01] LABS: Protein, Urine (Random) 19.2 mg/dL (<11.9); Protein:Creat Ratio 239 mg/g CRE (0-200)
== END ==
PROVIDERS: Family Provider Family Medicine; PCP Family Medicine; Referring Provider Obstetrics & Gynecology; Visit Provider Obstetrics & Gynecology
DX: O16.3 Unspecified maternal hypertension, third trimester (principal); O99.212 Obesity complicating pregnancy, second trimester; Z3A.00 Weeks of gestation of pregnancy not specified
CPT/HCPCS: 36415; 80053; 82570; 83615; 84156; 84550; 85025

== ENCOUNTER → 2019-03-09 10:45 | Outpatient (CLI) | payer OTHER, SELFPAY ==
[2019-03-09 09:59] VITALS: BMI 44.3
[2019-03-09 11:10] LABS: Hemoglobin 11.2 g/dl (12.0-15.0); Red Blood Count 3.94 M/mm3 (4.2-5.4); White Blood Count 9.9 K/mm3 (4.4-11.0)
[2019-03-09 11:11] LABS: Absolute Lymphocyte Count 1.96 X10^3/ul (0.83-4.51); Absolute Neutrophil Count 7.1 X10^3/uL (2.0-7.7); Basophil# 0.01 X10^3/uL; Basophil% 0.1 % (0-1); Eosinophil# 0.04 X10^3/uL; Eosinophils% 0.4 % (0-5); Lymphocyte # 1.96 X10^3/ul (4.0); Lymphocyte % 19.7 % (19-41); Mean Corpuscular Hgb 28.4 pg (27.0-32.0); Mean Corpuscular Volume 88.8 fL (81-99); Mean Platelet Vol. 9.7 fl (6.2-12.0); Monocyte# 0.84 X10^3/uL; Monocyte% 8.5 % (0-10); Neutrophil # 7.05 X10^3/uL (2.7-7.7); POSITIVE COUNT NO; POSITIVE DIFFERENTIAL NO; POSITIVE MORPHOLOGY NO; Platelet Count 299 K/mm3 (150-450); RBC Distribution Width CV 15.6 % (11.6-14.6); RBC Distribution Width SD 50.5 fl (35.1-43.9)
[2019-03-09 11:17] LABS: ROM Internal Control Test YES-OK TO RESULT pt. (Internal QC)
[2019-03-09 11:18] LABS: ROM Patient Test Negative (Negative)
[2019-03-09 11:19] LABS: Protein, Urine (Random) 16.4 mg/dL (<11.9); Protein:Creat Ratio 198 mg/g CRE (0-200)
[2019-03-09 11:24] LABS: ALB/GLOB Ratio 0.6 RATIO (0.9-2.4); AST(SGOT) 11 U/L (15-37); Alanine Aminotransfer ALT/SGPT 18 U/L (13-56); Albumin, Serum 2.5 g/dL (3.2-5.0); Alkaline Phosphatase 116 U/L (45-117); Anion Gap 7 (5-15); BUN 12 mg/dL (7-18); BUN/Creat Ratio 27.9 RATIO (10-20); Calcium,Total 8.8 mg/dL (8.5-10.1); Chloride 107 mmol/L (98-107); Creatinine, Serum 0.43 mg/dL (0.55-1.02); EST Glomerular Filtration Rate 185 mL/min (>60); Est Glom Filt Rate - Afr Amer 224 mL/min (>60); Globulin 4.4 g/dL (2.2-4.2); Glucose 75 mg/dL (74-106); Potassium 3.9 mmol/L (3.5-5.1); Protein, Total 6.9 g/dL (6.4-8.2); Sodium Level 138 mmol/L (136-145)
== END ==
PROVIDERS: Family Provider Family Medicine; PCP Family Medicine; Referring Provider Nurse Practitioner Women's Health; Visit Provider Nurse Practitioner Women's Health
DX: O26.899 Other specified pregnancy related conditions, unspecified trimester (principal); N89.8 Other specified noninflammatory disorders of vagina; R51 Headache
CPT/HCPCS: 36415; 80053; 82570; 84112; 84156; 85025

== ENCOUNTER 2019-03-14 06:38 | Outpatient (CLI) | payer OTHER, SELFPAY ==
[2019-03-14 07:06] VITALS: BMI 44.3
[2019-03-14 07:30] VITALS: BMI 44.5
--- NOTE | 2019-03-16 04:49 | OB.TRI.PN ---
Progress Notes Date of Service: 03/14/19 Progress Note: Patient presents for irregular contractions heart tone 130 moderate variability reactive no decelerations category 1 tracing To: Irregular contractions No cervical change Assessment and plan false labor DC home reactive NST category 1 tracing reviewed labor precautions
== END 2019-03-14 08:35 | disposition home or self-care (01) ==
LOC: WPOUT 07:08 → WP 07:09
PROVIDERS: Family Provider Family Medicine; PCP Family Medicine; Referring Provider Obstetrics & Gynecology; Visit Provider Obstetrics & Gynecology
DX: O47.9 False labor, unspecified (principal); Z3A.00 Weeks of gestation of pregnancy not specified
CPT/HCPCS: 59025; 59050; 99218; G0378

== ENCOUNTER 2019-03-23 11:55 | Inpatient (IN) | payer OTHER, SELFPAY ==
[2019-03-23 09:59] VITALS: BMI 44.5
--- NOTE | 2019-03-23 12:47 | HP.PCM_ITS ---
- Problem List (1) Oligohydramnios Status: Acute (2) Oligohydramnios Status: Acute (3) Oligohydramnios in greene in third trimester Status: Acute (4) Normal Status: Acute Qualifiers: Comment: PRR JEFFREY 03/23/19 girl Darek Gastelum - Jugren (5) Obesity affecting Status: Acute Qualifiers: Comment: 1 TM glucola nl, discussed healthy weight gain (6) Status: Acute Qualifiers: Comment: carrier, genetic, and ntd screening declined. anatomy scan normal. Normal echocardiogram growth us every 4 wks. weekly , f/u growth normal (7) Segmental and somatic dysfunction of lumbar region Status: Acute (8) Segmental and somatic dysfunction of pelvic region Status: Acute (9) Segmental and somatic dysfunction of sacral region Status: Acute (10) UTI in Status: Acute Qualifiers: Comment: macrobid. repeat negative History and Physical Date of Admission: 03/23/19 Intake Vital Signs 03/23/19 Body Mass Index (BMI) 44.5 03/23/19 Height 5 ft 3 in 03/23/19 Weight: 255 lb 6 oz 03/23/19 Body Mass Index (BMI) 45.2 Intake Visit Reasons: 40 WEEK OB/NST Rfid Technician Required: No Is patient in pain?: No Allergies morphine Allergy (Mild, Verified 03/23/19 09:58) Anaphylaxis Medications vitamin#30 30 mg iron-10 mg iron-folic acid 1 mg-omg3 capsule 1 cap PO DAILY cap 07/28/18 [History Confirmed 03/23/19] acetaminophen 325 mg capsule 325 mg PO Q6H PRN 08/06/18 [History Confirmed 03/23/19] Last Menstral Period: 05/28/18 Zika: Zika virus screening: Negative : No PFSH PFSH Surgical History History of wisdom tooth extraction, class II edentulism (Acute) Hx laparoscopic cholecystectomy (Acute) Family History Mother Seizures Brother Heart defect Social History (Updated 03/23/19 @ 10:45 by Dasia Martinez MD) Smoking Status: Never smoker alcohol intake: current details: pre substance use type: does not use caffeine: Yes what type of physical activity do you participate in: walking seatbelt use: always do you feel safe at home: Yes 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 Date Name GA/Weeks Outcome Route Bth Weight Gen Labor Lgth Anesthesia Del Locatn Provider FOB Unknown 2014 Pamela live - full term 7lbs 8oz Female Alejandra Unknown 2016 Darek live - full term 9 lbs Male Donny Mora Delivery Date: On 07/28/18 @ 08:21 Dasia Martinez IOL oligo Delivery Date: No notes to display HPI 40 WEEK OB/NST: Details: CIRILO GARCIA is a 28 year old who presents for routine OB visit. upon examination and fluid check she was found to have oligohydramnios with n deedee of 3 cm OB Visit JEFFREY Calculator Estimated Delivery Date Method Current WG Current Estimate 03/23/19 Ultrasound #1 40w 0d Other Estimates 03/04/19 LMP (Certain) 42w 5d Expected Delivery Route/Plan Specific Issue/Plans flu vaccine: given tdap vaccine: given rhogam: na LARC form signed: declines labor support person: Jurgen pain management: epidural cut cord/dad catch: yes cord : yes PP control planned: condom discussed possible routes of delivery and associated risks: [] special requests: [] Initial Weight: 225 lb Date EGA Weight BP Urine Prot Glucose FHR FuHt Pres Mov CTX Dilation Effaced St Visit Note 07/28/18 6w 0d 225 lb (+0 oz) 112/70 08/06/18 7w 2d 226 lb (+16 oz) 114/60 Negative Negative 160 no vb cramping. dating us now shows 7 w 2 d 08/11/18 8w 0d 122/78 122/78 160 fht seen IUP viable no abnormality, smal brown discharge likely cervical in origin. reassurance given fu as scheduled. 09/06/18 11w 5d 224 lb (-16 oz) 140/80 Negative Negative 160 no vb discharge doing well. 10/04/18 15w 5d 225 lb 6 oz (+6 oz) 122/78 Negative Negative 160 no vb cramping some nausea, scheduled anatomy scan 11/01/18 19w 5d 229 lb (+4 lb) 120/76 Negative Negative 150 no vb cramping. us today 11/29/18 23w 5d 150 24 Active no vb lof good fm n oregular ctx 12/27/18 27w 5d 236 lb (+11 lb) 126/70 Trace Negative 148 28 Active absent No VB, LOF. Doing well 01/11/19 29w 6d 240 lb (+15 lb) 110/80 Negative Negative 145 30 Active no vb lof good fm n oregular ctx 02/03/19 33w 1d 243 lb (+18 lb) 118/60 Negative Negative 140 Active No VB, LOF. NST 02/11/19 34w 2d 246 lb 2 oz (+21 lb 2 oz) 110/62 Negative Negative 140 Active no vb lof good fm no regular ctx 02/16/19 35w 0d 247 lb (+22 lb) 118/58 Negative Negative 140 Active absent no vb lof good fm no regular ctx. reactive nst, growth us next week 02/22/19 35w 6d 247 lb 6 oz (+22 lb 6 oz) 144/70 Negative Negative 148 Cephalic Active frequent -3 work in for irreg CTX, pressure, head ache. 03/02/19 37w 0d 248 lb (+23 lb) 104/70 Negative Negative 140 Cephalic Active no vb lof good fm irregular ctx- still haveing intermittent headaches n v, will repeat labs again 03/09/19 38w 0d 250 lb 6 oz (+25 lb 6 oz) 114/58 Negative Negative 150 Cephalic Active occasional 1 -3 No VB. ?LOF last pm; headache off a nd on X 3 days. Arm weakness and vision changes 3 days ago. 03/16/19 39w 0d 255 lb (+30 lb) Negative Negative 140 Cephalic Active occasional no vb lof good fm irregular ctx 03/23/19 40w 0d 255 lb 6 oz (+30 lb 6 oz) Negative Negative 140 Cephalic Active oligo deedee 3 cm plan IOL today Visit Notes Visit Date: 03/23/19 ??oligo deedee 3 cm plan IOL today ??Dasia Martinez MD on 03/23/19 Visit Date: 03/16/19 ??no vb lof good fm irregular ctx ??Dasia Martinez MD on 03/16/19 Visit Date: 03/09/19 ??No VB. ?LOF last pm; headache off and on X 3 days. Arm weakness and vision changes 3 days ago. ??Kelsey Allen NP-C on 03/09/19 Visit Date: 03/02/19 ??no vb lof good fm irregular ctx- still haveing intermittent headaches n v, will repeat labs again ??Dasia Martinez MD on 03/02/19 Visit Date: 02/22/19 ??work in for irreg CTX, pressure, headache. ??EVER LandaC on 02/22/19 Visit Date: 02/16/19 ??no vb lof good fm no regular ctx. reactive nst, growth us next week ??Dasia Martinez MD on 02/16/19 Visit Date: 02/11/19 ??no vb lof good fm no regular ctx ??Dasia Martinez MD on 02/11/19 Visit Date: 02/03/19 ??No VB, LOF. NST ??EVER LandaC on 02/03/19 Visit Date: 01/11/19 ??no vb lof good fm n oregular ctx ??Dasia Martinez MD on 01/11/19 Visit Date: 12/27/18 ??No VB, LOF. Doing well ??EVER LandaC on 12/27/18 Visit Date: 11/29/18 ??no vb lof good fm n oregular ctx ??Dasia Martinez MD on 11/29/18 Visit Date: 11/01/18 ??no vb cramping. us today ??Dasia Martinez MD on 11/01/18 Visit Date: 10/04/18 ??no vb cramping some nausea, scheduled anatomy scan ??Dasia Martinez MD on 10/04/18 Visit Date: 09/06/18 ??no vb discharge doing well. ??Dasia Martinez MD on 09/06/18 Visit Date: 08/11/18 ??fht seen IUP viable no abnormality, smal brown discharge likely cervical in origin. reassurance given fu as scheduled. ??Dasia Martinez MD on 08/11/18 Visit Date: 08/06/18 ??dating us now shows 7 w 2 d ??Dasia Martinez MD on 08/06/18 ??no vb cramping. ??Dasia Martinez MD on 08/06/18 Visit Date: 07/28/18 ??No visit notes to display ACOG First Trimester First Trimester: Desire for , Alcohol, Tobacco Cessation, Illicit/Recreational Drug/Substance Use, Intimate Partner Violence, Barriers to care, Unstable Housing, Communication Barriers, Environmental/Work Hazards, A nticipated Course of Care, Toxoplasmosis Precations, Use of Any medications, Sexual activity, Exercise, Dental Care, Sauna/Hot tub use, Seat Belt use, Childbirth classes/Hospital facilities, , Travel, Indications for US and Screening for Aneuploidy Second Trimester Second Trimester: Signs and Symptoms of Labor, Selecting a care provider, Reproductive Life Planning, Care Planning, Tobacco Cessation, Depression/Anxiety and Intimate Partner Violence Third Trimester Third Trimester: Pain Management Plans, Labor support person(s), Immediate Larc, Movement Monitoring and Feeding Yes ; discussed Trial of Labor after Counseling or discussed Circumcision preference Diagnostics Diagnostics Labs Hct 35.0 % (37-47) L 03/09/19 Hgb 11.2 g/dl (12.0-15.0) L 03/09/19 Details: HIV: Urine Culture: Sequential Screen: NIPT Screen: ROS Const Reports system reviewed and no additional complaints, except as docu Card Reports system reviewed and no additional complaints, except as docu Resp Reports system reviewed and no additional complaints, except as docu GI Reports system reviewed and no additional complaints, except as docu, Reports nausea Reports system reviewed and no additional complaints, except as docu Musc Reports system reviewed and no additional complaints, except as docu Exam Const General: cooperative, healthy appearing, comfortable, anxious HENMT Head: normal to inspection Nose: external nose normal Face and sinus: normal facial exam Neck Neck: normal visual inspection, full ROM, no lymphadenopathy Thyroid: thyroid normal Chest Chest palpation & inspection: normal inspection of the chest Resp Effort & Inspection: normal respiratory effort GI Inspection: normal to inspection Palpation: soft, other (gravid uterus) Other: vertex and appropriate size for gestational age Other: Cervical Exam: Extrem General: pedal edema Results [id number] Office Urine Glucose Negative Last Edit by Liana Horta on 03/23/19 09:57 Office Urine Protein Negative Last Edit by Liana Horta on 03/23/19 09:57 Assessment & Plan Problems 1. Oligohydramnios without rupture of membranes in third trimester, single or unspecified fetus O41.03X0 Plan plan pitocin IOL and wren bulb gbs neg Orders Orders: OB NST Today O99.210 POC Urinalysis 2 Dip (Clinic) Today Plan Detail Goals Decrease pain and inflammation Decrease night/morning stiffness Barriers Coding Level of Care Code OB Routine Diagnoses Oligohydramnios without rupture of membranes in third trimester, single or unspecified fetus O41.03X0 ??Fetus number: single or unspecified fetus UPDATE- I have seen the patient and performed any clinically relevant updates to the history and physical exam. Dasia Martinez MD
[2019-03-23] MEDS: 0.9% Normal Saline 100 ML IV.SOLN. INTRA-UTER (12:54)
[2019-03-23 13:00] VITALS: BMI 42.5
[2019-03-23] MEDS: Lactated Ringers 1,000 ML 50 ML IV ×2 (18:20→21:08)
[2019-03-23 18:28] LABS: Group B Strep DNA By PCR Negative (Negative); Internal Control PASS; Probe Check PASS; Specimen Processing Control PASS
[2019-03-23 18:44] LABS: Absolute Lymphocyte Count 2.57 X10^3/uL (0.83-4.51); Absolute Neutrophil Count 7.9 X10^3/uL (2.0-7.7); Basophil# 0.02 X10^3/uL; Basophil% 0.2 % (0-1); Eosinophil# 0.03 X10^3/uL; Eosinophils% 0.3 % (0-5); Hematocrit 37.1 % (37-47); Lymphocyte # 2.57 X10^3/ul (4.0); Lymphocyte % 22.6 % (19-41); Mean Corp Hgb Conc 32.3 g/dL (32-36); Mean Corpuscular Hgb 29.1 pg (27.0-32.0); Mean Corpuscular Volume 89.8 fL (81-99); Mean Platelet Vol. 9.6 fl (6.2-12.0); Monocyte# 0.81 X10^3/uL; Monocyte% 7.1 % (0-10); NRBC Flagged by Analyzer 0 % (0-5); Neutrophil # 7.88 X10^3/uL (2.7-7.7); Neutrophil % 69.4 % (47-70); Platelet Count 319 K/mm3 (150-450); RBC Distribution Width CV 15.6 % (11.6-14.6); RBC Distribution Width SD 51.3 fl (35.1-43.9); Red Blood Count 4.13 M/mm3 (4.2-5.4); White Blood Count 11.4 K/mm3 (4.4-11.0)
[2019-03-23] MEDS: Oxytocin 30 units/NS 500 ml 30 UNITS/500 ML IV.SOLN IV (19:53)
[2019-03-23] MEDS: fentaNYL-bupivacaine (epidural) 100 ML BAG EPIDURAL (22:10)
[2019-03-24] MEDS: Lactated Ringers 1,000 ML 50 ML IV (01:35)
[2019-03-24] MEDS: Amnioinfusion- 0.9% NS 1,000 ML IV.SOLN. INTRA-UTER (01:40)
[2019-03-24] MEDS: fentaNYL-bupivacaine (epidural) 100 ML BAG EPIDURAL (03:01)
[2019-03-24] MEDS: Ondansetron 4 MG/2 ML Vial IV (04:00)
[2019-03-24] MEDS: Oxytocin 30 units/NS 500 ml 30 UNITS/500 ML IV.SOLN 334 UNITS IV (05:55)
--- NOTE | 2019-03-24 06:21 | PCM.OPRPT ---
Problem List (1) Oligohydramnios Status: Acute (2) Oligohydramnios Status: Acute (3) Oligohydramnios in greene in third trimester Status: Acute (4) Normal Status: Acute Qualifiers: Comment: PRR JEFFREY 03/23/19 girl Darek Gastelum - Jurgen (5) Obesity affecting Status: Acute Qualifiers: Comment: 1 TM glucola nl, discussed healthy weight gain (6) Status: Acute Qualifiers: Comment: carrier, genetic, and ntd screening declined. anatomy scan normal. Normal echocardiogram growth us every 4 wks. weekly , f/u growth normal (7) Segmental and somatic dysfunction of lumbar region Status: Acute (8) Segmental and somatic dysfunction of pelvic region Status: Acute (9) Segmental and somatic dysfunction of sacral region Status: Acute (10) UTI in Status: Acute Qualifiers: Comment: macrobid. repeat negative Vaginal Delivery Maternal Presentation: Medically Indicated Induction Induction of labor oligohydramnios KYLE of 3 cm Method of Induction: Pitocin, Katz Bulb Amniotic Membrane Rupture Type: Artificial Amniotic Fluid Description: Clear Final JEFFREY: 03/23/19 Gestational age: 40 Weeks and 1 Days Surgery/ Procedure Performed: Spontaneous Vaginal Delivery Type of Anesthesia: Epidural Description of Procedure: Patient began pushing and delivered the head in the YENNY presentation. The head was delivered atraumatically and a loose nuchal cord ?1 was identified and easily reduced over the infant's head. The anterior and posterior shoulders delivered without complication followed by the rest of the infant and the was placed on the maternal abdomen. Delayed cord clamping was employed for approximately 60 seconds. Cord was clamped and cut and gentle traction was applied to the cord and the placenta delivered spontaneously immediately following it was noted to be intact with three-vessel cord. The perineum and vagina were inspected and noted to have a second-degree perineal laceration that was repaired in the usual fashion with 3-0 Vicryl repeat. EBL was noted 300 cc. Patient and infant tolerated delivery well. Presentation: YENNY Placental Delivery Description: Spontaneous Placenta Disposition: [facility] Cord Vessel Description: 3 Vessels Cord Entanglement: None Estimated Blood Loss: 300 A gender: Female Laceration: Perineal Extension/lac, 2nd degree Medications given after delivery: IV Pitocin Complications: None
[2019-03-24] MEDS: Oxytocin 30 units/NS 500 ml 30 UNITS/500 ML IV.SOLN 167 UNITS IV (06:30)
[2019-03-24] MEDS: Naproxen 250 MG Tablet 500 MG PO ×2 (10:23→22:54)
[2019-03-24 12:10] VITALS: BP 121/59; PULSE 98; RESP 16; TEMP 36.8
[2019-03-24] MEDS: Acetaminophen 500 MG Tablet 1000 MG PO (14:42)
[2019-03-24 16:46] VITALS: BP 117/58; PULSE 100; RESP 18; TEMP 37.2
[2019-03-24 19:50] VITALS: BP 125/59; PULSE 101; RESP 16; TEMP 36.4
[2019-03-24] MEDS: oxyCODONE 5 MG Tablet PO (20:18)
[2019-03-25 00:21] VITALS: BP 113/58; PULSE 90; RESP 16; TEMP 36.6
[2019-03-25 04:38] VITALS: BP 111/54; PULSE 96; RESP 18; TEMP 36.7
[2019-03-25] MEDS: Acetaminophen 500 MG Tablet 1000 MG PO (04:45)
[2019-03-25 07:30] VITALS: BP 114/60; PULSE 88; RESP 16; TEMP 36.4
--- NOTE | 2019-03-25 07:58 | PCM.PN.OB ---
Patient Problems: Active and Suspected Problems (Last Reviewed 03/23/19 @ 09:59 by Liana Horta) Contraception management (Acute) IUD post - No PA required. Reference number [id number]. Oligohydramnios (Acute) Oligohydramnios (Acute) Oligohydramnios in greene in third trimester (Acute) Subjective: doing well no complaints pain controlled no CP SOB N V ambulating well tolerating po lochia moderate, going well - Physical Exam General: Alert, Oriented x3 Abdomen: Soft, Non Tender, - - FF below U Vital Signs Temp Pulse Resp BP 98.0 F 96 18 111/54 L 03/25/19 04:38 03/25/19 04:38 03/25/19 04:38 03/25/19 04:38 Oxygen Delivery Method Room Air Weight: 255 lb 4.725 oz Body Mass Index (BMI) 42.5 Intake and Output for Last 24 Hours 03/23/19 03/24/19 03/25/19 23:59 23:59 23:59 Output Total 700 / 700 Balance -700 / -700 Medical Necessity - Tobacco Use Smoking Status: Never smoker Assessment/Plan All Active Problems (Last Reviewed 03/23/19 @ 09:59 by Liana Horta) Contraception management (Acute) Oligohydramnios (Acute) Oligohydramnios (Acute) Oligohydramnios in greene in third trimester (Acute) Segmental and somatic dysfunction of pelvic region (Acute) Segmental and somatic dysfunction of sacral region (Acute) Segmental and somatic dysfunction of lumbar region (Acute) (Acute) UTI in (Acute) Obesity affecting (Acute) Normal (Acute) s/p PPD # 1 1. routine post delivery care 2. breast feeding- support given 3. rh positive 4. rubella immune 5. Enc stool softener 6. Plans home today
--- NOTE | 2019-03-25 08:00 | DCINST_ITS ---
Additional Instructions: If you experience any of the following, contact your healthcare provider. * Bleeding that soaks a pad every hour for 2 hours * Fever 100.4 or higher * Unrelieved incision or abdominal pain * Swelling, redness, discharge or bleeding from your incision or episiotomy site * Your incision begins to separate * Problems urinating (including inability to urinate or burning while urinating). * Visual changes * Severe headache * Flu-like symptoms * Pain or redness in one of both of your breasts * Pain, warmth, tenderness or swelling in your legs, especially the calf area * Frequent nausea and vomiting * Symptoms of depression or anxiety If you experience any of the following, call 911 or go to the nearest Emergency Room. * Chest pain * Problems breathing * Seizure activity * Partial or complete paralysis of a body part, slurred speech, weakness or drooping of the face, or a sudden inability to walk or hold your balance Allergies/Adverse Reactions: Allergies morphine Allergy (Mild, Verified 03/23/19 09:58) Anaphylaxis Medications to take at Discharge vitamin#30 30 mg iron-10 mg iron-folic acid 1 mg-omg3 capsule 1 cap PO DAILY cap 07/28/18 acetaminophen 325 mg capsule 325 mg PO Q6H PRN 08/06/18 Primary Care Physician: Brian Ontiveros DO [Primary Care Provider] - Test Results: Test results from this visit will be discussed in further detail at your follow- up appointment, if applicable.
--- NOTE | 2019-03-25 08:00 | PCM.DCVAG ---
Additional Instructions: If you experience any of the following, contact your healthcare provider. Bleeding that soaks a pad every hour for 2 hours Fever 100.4 or higher Unrelieved incision or abdominal pain Swelling, redness, discharge or bleeding from your incision or episiotomy site Your incision begins to separate Problems urinating (including inability to urinate or burning while urinating). Visual changes Severe headache Flu-like symptoms Pain or redness in one of both of your breasts Pain, warmth, tenderness or swelling in your legs, especially the calf area Frequent nausea and vomiting Symptoms of depression or anxiety If you experience any of the following, call 911 or go to the nearest Emergency Room. Chest pain Problems breathing Seizure activity Partial or complete paralysis of a body part, slurred speech, weakness or drooping of the face, or a sudden inability to walk or hold your balance Allergies/Adverse Reactions: Allergies morphine Allergy (Mild, Verified 03/23/19 09:58) Anaphylaxis Medications to take at Discharge vitamin#30 30 mg iron-10 mg iron-folic acid 1 mg-omg3 capsule 1 cap PO DAILY cap 07/28/18 acetaminophen 325 mg capsule 325 mg PO Q6H PRN 08/06/18 Primary Care Physician: Brian Ontiveros DO [Primary Care Provider] - Test Results: Test results from this visit will be discussed in further detail at your follow-up appointment, if applicable.
[2019-03-25] MEDS: Naproxen 250 MG Tablet 500 MG PO (13:31)
[2019-03-25 14:10] VITALS: BP 140/62; PULSE 109; RESP 16; TEMP 36.8
--- NOTE | 2019-03-30 16:20 | NURSING ---
Mother doing well and baby eating well. She states she has some oversupply but reviewed some tips to help. States she like Maki Garcia
== END 2019-03-25 16:30 | disposition home or self-care (01) | DRG 806 ==
PROVIDERS: Admitting Provider Obstetrics & Gynecology; Family Provider Family Medicine; PCP Family Medicine; Referring Provider Obstetrics & Gynecology; Visit Provider Obstetrics & Gynecology
DX: O41.03X0 Oligohydramnios, third trimester, not applicable or unspecified (principal); O23.43 Unspecified infection of urinary tract in pregnancy, third trimester; Z37.0 Single live birth; E66.9 Obesity, unspecified; O99.214 Obesity complicating childbirth; O69.81X0 Labor and delivery complicated by cord around neck, without compression, not applicable or unspecified; O70.1 Second degree perineal laceration during delivery; O99.89 Other specified diseases and conditions complicating pregnancy, childbirth and the puerperium; M99.03 Segmental and somatic dysfunction of lumbar region; M99.04 Segmental and somatic dysfunction of sacral region; M99.05 Segmental and somatic dysfunction of pelvic region; Z3A.40 40 weeks gestation of pregnancy
CPT/HCPCS: 59025; 59050; 85025; 86850; 86900; 87081; 87653; 99218; J7030; J7120; G0378; J2405

== ENCOUNTER → 2019-04-05 20:46 | Outpatient (CLI) | payer OTHER, SELFPAY ==
[2019-03-23 13:00] VITALS: BMI 42.5
== END ==
PROVIDERS: Family Provider Family Medicine; PCP Family Medicine; Referring Provider Obstetrics & Gynecology; Visit Provider Obstetrics & Gynecology
DX: Z39.1 Encounter for care and examination of lactating mother (principal)
CPT/HCPCS: 96152

== ENCOUNTER → 2020-02-29 14:37 | Outpatient (CLI) | payer OTHER, SELFPAY ==
[2020-02-29 14:11] VITALS: BMI 42.5
[2020-02-29 15:14] LABS: Thyroid Stim Hormone (TSH) 1.53 uIU/mL (0.358-3.74)
== END ==
LOC: PAVLAB 14:39
PROVIDERS: PCP Family Medicine; Referring Provider Nurse Practitioner Women's Health; Visit Provider Nurse Practitioner Women's Health
DX: N92.6 Irregular menstruation, unspecified (principal)
CPT/HCPCS: 36415; 84443

== ENCOUNTER → 2020-03-13 15:21 | Outpatient (CLI) | payer OTHER, SELFPAY ==
[2020-02-29 14:11] VITALS: BMI 42.5
--- NOTE | 2020-03-13 15:23 | US_ITS ---
STUDY: ULTRASOUND OF THE FEMALE PELVIS - COMPLETE REASON FOR EXAM: Female, 29 years old. IRREGULAR MENSES LMP: TECHNIQUE: Transabdominal and transvaginal TECHNICAL QUALITY: Adequate. COMPARISON: None. FINDINGS: The uterus is anteverted and is in a midline position. The uterus measures 11.2 x 7.8 x 5.1 cm. Normal uterine cervix. The endometrium measures 14.4 mm in thickness, and is hyperechoic. . There are tiny cystic areas noted suggesting possibility of adenomyosis There is no demonstrated endometrial mass. There is no demonstrated myometrial mass. I.U.D. - The patient does not have an I.U.D. Tiny nabothian cyst is noted within the lower uterine segment The right ovary is visualized. The right ovary measures 2.8 x 2.8 x 1.5 cm. There is no right ovarian cyst or ovarian mass. There is no visualized right adnexal mass or complex lesion. There is normal arterial and normal venous vascularity. The left ovary is visualized. The left ovary measures 2.6 x 2.5 x 1.8 cm. There is no left ovarian cyst or ovarian mass. There is no visualized left adnexal mass or complex lesion. There is normal arterial and normal venous vascularity. There is no fluid in the cul-de-sac. The pre void volume of the bladder was 150.95 ml. US/Transvaginal Non- IMPRESSION: Thickened endometrial lining with findings suggestive of adenomyosis. Clinical correlation recommended Electronically Signed: Ananth Simms MD at 17:32 EDT , Service support ,
--- NOTE | 2020-03-13 15:23 | US_ITS ---
STUDY: ULTRASOUND OF THE FEMALE PELVIS - COMPLETE REASON FOR EXAM: Female, 29 years old. IRREGULAR MENSES LMP: TECHNIQUE: Transabdominal and transvaginal TECHNICAL QUALITY: Adequate. COMPARISON: None. FINDINGS: The uterus is anteverted and is in a midline position. The uterus measures 11.2 x 7.8 x 5.1 cm. Normal uterine cervix. The endometrium measures 14.4 mm in thickness, and is hyperechoic. . There are tiny cystic areas noted suggesting possibility of adenomyosis There is no demonstrated endometrial mass. There is no demonstrated myometrial mass. I.U.D. - The patient does not have an I.U.D. Tiny nabothian cyst is noted within the lower uterine segment The right ovary is visualized. The right ovary measures 2.8 x 2.8 x 1.5 cm. There is no right ovarian cyst or ovarian mass. There is no visualized right adnexal mass or complex lesion. There is normal arterial and normal venous vascularity. The left ovary is visualized. The left ovary measures 2.6 x 2.5 x 1.8 cm. There is no left ovarian cyst or ovarian mass. There is no visualized left adnexal mass or complex lesion. There is normal arterial and normal venous vascularity. There is no fluid in the cul-de-sac. The pre void volume of the bladder was 150.95 ml. US/Pelvic (Non ) IMPRESSION: Thickened endometrial lining with findings suggestive of adenomyosis. Clinical correlation recommended Electronically Signed: Ananth Simms MD at 17:32 EDT , Service support ,
== END ==
PROVIDERS: PCP Family Medicine; Referring Provider Nurse Practitioner Women's Health; Visit Provider Nurse Practitioner Women's Health
DX: N92.6 Irregular menstruation, unspecified (principal)
CPT/HCPCS: 76830; 76856

== ENCOUNTER 2021-09-12 14:25 | Outpatient (CLI) | payer OTHER, SELFPAY ==
[2021-09-18 08:46] LABS: HPV APTIMA, High Risk Negative (Negative)
== END 2021-09-12 23:59 | disposition short-term general hospital (02) ==
LOC: LABSPEC 14:26
PROVIDERS: PCP Family Medicine; Visit Provider Nurse Practitioner Women's Health
DX: Z01.419 Encounter for gynecological examination (general) (routine) without abnormal findings (principal)
CPT/HCPCS: 87624; 88175; G0145

== ENCOUNTER → 2022-03-28 | Outpatient (CLI) | payer OTHER, SELFPAY ==
[2022-03-27 14:08] LABS: Amphetamine Urine VISTA NEGATIVE (<1000 ng/mL); Barbiturate Urine VISTA NEGATIVE (< 200 ng/mL); Benzodiazepine Urine VISTA NEGATIVE (< 200 ng/mL); Cocaine Urine VISTA NEGATIVE (< 300 ng/mL); Ecstacy Urine VISTA NEGATIVE (< 500 ng/mL); Methadone Urine VISTA NEGATIVE (< 300 ng/mL); PCP Urine VISTA NEGATIVE (< 25 ng/mL); THC Urine VISTA NEGATIVE (< 50 ng/mL); Vista UDS pH Range 5
[2022-03-31 22:06] LABS: Chlamydia By Nucleic Acid AMP Negative (Negative)
[2022-03-31 23:29] LABS: Gonococcus By Nucleic Acid AMP Negative (Negative)
== END | disposition home or self-care (01) ==
LOC: LABSPEC 10:12
PROVIDERS: PCP Nurse Practitioner Family; Visit Provider Obstetrics & Gynecology
DX: Z34.90 Encounter for supervision of normal pregnancy, unspecified, unspecified trimester (principal)
CPT/HCPCS: 80307; 87086; 87088; 87491; 87591

== ENCOUNTER → 2022-05-19 | Outpatient (CLI) | payer OTHER, SELFPAY ==
[2022-05-19 12:46] LABS: Absolute Lymphocyte Count 2.39 X10^3/uL (0.83-4.51); Basophil# 0.03 X10^3/uL; Basophil% 0.4 % (0-1); Eosinophil# 0.09 X10^3/uL; Eosinophils% 1.1 % (0-5); Hematocrit 36.9 % (37-47); Hemoglobin 11.7 g/dL (12.0-15.0); Lymphocyte # 2.39 X10^3/ul (0.83-4.51); Lymphocyte % 29.1 % (19-41); Mean Corp Hgb Conc 31.7 g/dL (32-36); Mean Corpuscular Hgb 28.5 pg (27.0-32.0); Mean Platelet Vol. 9.6 fl (6.2-12.0); Monocyte# 0.65 X10^3/uL; Monocyte% 7.9 % (0-10); NRBC Flagged by Analyzer 0 % (0-5); Neutrophil # 5.03 X10^3/uL (2.7-7.7); Neutrophil % 61.1 % (47-70); Platelet Count 327 K/mm3 (150-450); RBC Distribution Width CV 13.9 % (11.6-14.6); RBC Distribution Width SD 45.4 fl (35.1-43.9); White Blood Count 8.2 K/mm3 (4.4-11.0)
[2022-05-19 13:02] LABS: Glucose Challenge Gest 1H 50g 138 mg/dL (70-140)
[2022-05-19 13:45] LABS: HIV - WCH Non-Reactive (Nonreactive); Hepatitis B Surface Antigen Non-Reactive (Nonreactive); Hepatitis C Antibody Non-Reactive (Nonreactive); Rubella IgG Reactive (Nonreactive); Syphilis Antibodies Non-reactive
== END | disposition home or self-care (01) ==
LOC: LAB 11:16
PROVIDERS: PCP Nurse Practitioner Family; Referring Provider Obstetrics & Gynecology; Visit Provider Obstetrics & Gynecology
DX: Z34.90 Encounter for supervision of normal pregnancy, unspecified, unspecified trimester (principal)
CPT/HCPCS: 36415; 82950; 85025; 86703; 86762; 86780; 86803; 86850; 86900; 86901; 87340

== ENCOUNTER → 2022-08-27 | Outpatient (CLI) | payer OTHER, SELFPAY ==
[2022-08-27 13:47] LABS: Absolute Lymphocyte Count 2.35 X10^3/uL (0.83-4.51); Absolute Neutrophil Count 6.7 X10^3/uL (2.0-7.7); Basophil# 0.02 X10^3/uL; Basophil% 0.2 % (0-1); Eosinophil# 0.04 X10^3/uL; Eosinophils% 0.4 % (0-5); Hematocrit 35.9 % (37-47); Lymphocyte # 2.35 X10^3/ul (0.83-4.51); Lymphocyte % 24.2 % (19-41); Mean Corp Hgb Conc 33.4 g/dL (32-36); Mean Corpuscular Hgb 29.7 pg (27.0-32.0); Mean Corpuscular Volume 88.9 fL (81-99); Mean Platelet Vol. 9.3 fl (6.2-12.0); Monocyte# 0.63 X10^3/uL; Monocyte% 6.5 % (0-10); NRBC Flagged by Analyzer 0 % (0-5); Neutrophil # 6.67 X10^3/uL (2.7-7.7); Neutrophil % 68.5 % (47-70); Platelet Count 335 K/mm3 (150-450); RBC Distribution Width CV 14.1 % (11.6-14.6); RBC Distribution Width SD 46.1 fl (35.1-43.9); Red Blood Count 4.04 M/mm3 (4.2-5.4); White Blood Count 9.7 K/mm3 (4.4-11.0)
[2022-08-27 14:29] LABS: HIV - WCH Non-Reactive (Nonreactive); Syphilis Antibodies Non-reactive
== END | disposition home or self-care (01) ==
LOC: PAVLAB 13:33
PROVIDERS: Obstetrics & Gynecology; Registered Nurse; PCP Nurse Practitioner Family; Referring Provider Nurse Practitioner Women's Health; Visit Provider Nurse Practitioner Women's Health
DX: O09.90 Supervision of high risk pregnancy, unspecified, unspecified trimester (principal); Z3A.00 Weeks of gestation of pregnancy not specified
CPT/HCPCS: 36415; 85025; 86703; 86780

== ENCOUNTER → 2022-10-07 | Outpatient (CLI) | payer OTHER, SELFPAY | END | disposition home or self-care (01) | LOC: LABSPEC 14:27 | PROVIDERS: PCP Nurse Practitioner Family; Referring Provider Obstetrics & Gynecology; Visit Provider Obstetrics & Gynecology | DX: Z34.93 Encounter for supervision of normal pregnancy, unspecified, third trimester (principal) | CPT/HCPCS: 87077; 87081; 87186 ==

== ENCOUNTER 2022-10-27 18:50 | Inpatient (IN) | payer OTHER, SELFPAY ==
[2022-10-27 19:20] VITALS: BMI 47.2
[2022-10-27 19:42] VITALS: BP 132/65; PULSE 103; PULSE 108; TEMP 36.5; O2SAT 97
[2022-10-27] MEDS: Lactated Ringers 1,000 ML 50 ML IV (19:55)
[2022-10-27 20:11] LABS: Absolute Lymphocyte Count 2.25 X10^3/uL (0.83-4.51); Absolute Neutrophil Count 6.3 X10^3/uL (2.0-7.7); Basophil# 0.03 X10^3/uL; Basophil% 0.3 % (0-1); Eosinophil# 0.02 X10^3/uL; Eosinophils% 0.2 % (0-5); Hematocrit 36.6 % (37-47); Hemoglobin 11.6 g/dL (12.0-15.0); Lymphocyte # 2.25 X10^3/ul (0.83-4.51); Lymphocyte % 23.9 % (19-41); Mean Corp Hgb Conc 31.7 g/dL (32-36); Mean Corpuscular Hgb 28.8 pg (27.0-32.0); Mean Corpuscular Volume 90.8 fL (81-99); Mean Platelet Vol. 9.8 fl (6.2-12.0); Monocyte# 0.78 X10^3/uL; Monocyte% 8.3 % (0-10); NRBC Flagged by Analyzer 0 % (0-5); Neutrophil # 6.31 X10^3/uL (2.7-7.7); Neutrophil % 66.9 % (47-70); Platelet Count 352 K/mm3 (150-450); RBC Distribution Width CV 14.7 % (11.6-14.6); RBC Distribution Width SD 48.8 fl (35.1-43.9); Red Blood Count 4.03 M/mm3 (4.2-5.4); White Blood Count 9.4 K/mm3 (4.4-11.0)
[2022-10-27] MEDS: miSOPROStol 25 MCG TABLET PO (20:30)
[2022-10-27 20:59] VITALS: BP 139/69
[2022-10-27 21:00] VITALS: PULSE 101; TEMP 36.6; O2SAT 98
[2022-10-27 22:05] LABS: Bedside Glucose 114 mg/dL (74-106)
[2022-10-27 22:05] LABS: Bedside Glucose 104 mg/dL (74-106)
[2022-10-27 22:37] VITALS: BP 130/75; PULSE 101; TEMP 36.2
[2022-10-27 22:38] VITALS: PULSE 99; O2SAT 97
[2022-10-27 23:00] LABS: Bedside Glucose 98 mg/dL (74-106)
[2022-10-28] VITALS (19 sets, daily range): BP systolic 102–138; BP diastolic 49–90; PULSE 89–100; RESP 12–20; TEMP 35.9–36.6; O2SAT 95–100
[2022-10-28] MEDS: miSOPROStol 50 MCG TABLET PO (00:38)
[2022-10-28] MEDS: Penicillin G 3,000,000 Units 50 ML 100 UNITS IV ×2 (01:45→06:08)
[2022-10-28 02:11] LABS: Bedside Glucose 114 mg/dL (74-106)
[2022-10-28 03:15] LABS: Bedside Glucose 102 mg/dL (74-106)
--- NOTE | 2022-10-28 03:51 | HP.PCM.OB_ITS ---
HPI - General General Date of Admission: 10/27/22 HPI Narrative CIRILO GARCIA, is a 32 F who presents at 38+6 for IOL for uncontrolled diabetes, managed on NPH. Maternal Data Information JEFFREY Calculator Estimated Delivery Date Method Current WG Current Estimate 11/04/22 LMP (Certain) 39w 0d Other Estimates 11/18/22 Ultrasound #1 37w 0d 11/06/22 Ultrasound #2 38w 5d PFSH PFSH Medical History (Updated 10/28/22 @ 03:58 by Mikaela Villanueva CNM) Autoimmune disease pyelectasis Gestational diabetes hemorrhage Home Medications atomoxetine 40 mg capsule 40 mg PO DAILY 09/12/21 [History Last Taken Unknown] PNV-iron 29 mg-folic acid 1 mg-omega3 250 mg-dha 200mg oral combo pack 1 pkg PO DAILY 03/26/22 [History Last Taken 10/20/22 08:00] insulin NPH isoph U-100 human 100 unit/mL subcutaneous suspension 5 unit subcut QPM GDM 10/27/22 [History Last Taken 10/27/22 10:00] insulin syr/ndl U100 half jennifer 0.5 mL 29 gauge x 1/2 10/27/22 [History Last Taken Unknown] Allergy/AdvReac Type Severity Reaction Status Date / Time morphine Allergy Mild Anaphylaxis Verified 10/27/22 20:35 Family History Mother Seizures Brother Heart defect Surgical History History of wisdom tooth extraction, class II edentulism Hx laparoscopic cholecystectomy Social History adopted: No household members: spouse, family and children housing: house number of children: 3 current occupational status: employed current occupation: [employer] current occupational exposures/hazards: Yes pets and animals: Yes (Not managing litterbox) pets and animals: cat(s) history of recent travel: No sexually active: Yes Smoking Status: Never smoker alcohol intake: current details: pre substance use type: does not use diet: lactose free well-balanced diet: daily or most days caffeine: Yes Type: coffee Number of servings: 1 eating out: rarely or never what type of physical activity do you participate in: walking frequency: 3-4 times per week duration: 30-45 minutes/day toro/taoist: None seatbelt use: always do you feel safe at home: Yes 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 Date Name GA/Weeks Outcome Route Bth Weight Gen Labor Lgth Anesthesia Del Locatn Provider FOB Unknown 2014 Pamela live - full term 7lbs 8oz Female [facility] Unknown 2016 Darek live - full term 9 lbs Male [facility] 03/24/19 Alban 40 live - full term Female epi dural WC JASPREET Delivery Date: Last Updated by: Dasia Martinez MD IOL oligo Delivery Date: 03/24/19 Last Updated by: Blanca Morales oligo Visit Details Expected Delivery Route/Plan Labor Preferences- CB/BF classes: no labor support person: Jurgen labor intervention preferences: [] pain management options preferred: epidural cut cord/dad catch: cord : yes PP control planned: discussed discussed possible routes of delivery and associated risks: [] special requests: [] Plans Covid status: had Flu vaccine: may 2022 Tdap vaccine: gvien Rhogam: na LARC form signed: yes movement and labor precautions reviewed. Problem list reviewed and updated with the most current plan of care details and appropriate orders placed. Relevant counseling for the gestational age provided. Continue routine care and follow up unless otherwise noted in visit notes/problem list details OB Flowsheet Initial Weight: Not Recorded Date -?-?-?-?-?-?-?--?-?-?-?-?- EGA Weight BP Urine Prot -?-?-?-?-?-?-?-?-?-?-?-?- Glucose FHR FuHt Pres Dilation -?-?-?-?-?-?-?-?-?-?-?-?- Effaced St Visit Note 03/27/22 -?-?-?-?-?-?-?-?-?-?-?-?- 8w 2d 233 lb 8 oz 126/78 -?-?-?-?-?-?-?-?-?-?-?-?- -?-?-?-?-?-?-?-?-?-?-?-?- JV- JV-crl not consitent with lm p. new due date 11/1804/25/22 -?-?-?-?-?-?-?-?-?-?-?-?- 12w 3d 234 lb 142/82 -?-?-?-?-?-?-?-?-?-?-?-?- 150 -?-?-?-?-?-?-?-?-?-?-?-?- JV- new CRL tod ay now looks consistent with LMP. JEFFREY 11/04/21. glucola ordered. 05/19/22 -?-?-?-?-?-?-?-?-?-?-?-?- 15w 6d 244 lb 4 oz 118/74 Nega tive -?-?-?-?-?-?-?-?-?-?-?-?- Negative 151 -?-?-?-?-?-?-?-?-?-?-?-?- MH-No VB, LOF. F eeling flutters. Will do labs today, GCT. MFM US ordered. 06/17/22 -?-?-?-?-?-?-?-?-?-?-?-?- 20w 0d 250 lb 4 oz 124/71 Nega tive -?-?-?-?-?-?-?-?-?-?-?-?- Negative 152 -?-?-?-?-?-?-?-?-?-?-?-?- MH-No VB, LOF. F eeling movement. No concerns 07/18/22 -?-?-?-?-?-?-?-?-?-?-?-?- 24w 3d 255 lb 4 oz 124/76 Nega tive -?-?-?-?-?-?-?-?-?-?-?-?- Negative 145 30 -?-?-?-?-?-?-?-?-?-?-?-?- JV- gct ordered but pt may want to just monitor glucose levels. she had very low glucose after 3 hr. pt has abdominal obesity. unable to accurately monitor fundal height today. 08/13/22 -?-?-?-?-?-?-?-?-?-?-?-?- 28w 1d 258 lb 126/75 Negative -?-?-?-?-?-?-?-?-?-?-?-?- Negative 140 30 -?-?-?-?-?-?-?-?-?-?-?-?- LC- no vb/ctx/lo f. good fm. will monitor glucose levels instead of GCT. will obtain remaining 28 week labs. LC- no vb/ctx/lof. good fm. will monitor glucose levels instead of GCT. will obtain remaining 28 week labs. declines LARC. desires PPTL. tdap given today. 08/27/22 -?-?-?-?-?-?-?-?-?-?-?-?- 30w 1d 259 lb 6 oz 120/74 Nega tive -?-?-?-?-?-?-?-?-?-?-?-?- Negative 164 32 -?-?-?-?-?-?-?-?-?-?-?-?- 09/09/22 -?-?-?-?-?-?-?-?-?-?-?-?- 32w 0d 261 lb 122/74 Negative -?-?-?-?-?-?-?-?-?-?-?-?- Negative 152 33 -?-?-?-?-?-?-?-?-?-?-?-?- MH-No VB, LOF. G ood Fm. MFM US 09/11 for kidneys/growth. 09/24/22 -?-?-?-?-?-?-?-?-?-?-?-?- 34w 1d 264 lb 8 oz 125/69 Nega tive -?-?-?-?-?-?-?-?-?-?-?-?- Negative 155 39 40 -?-?-?-?-?-?-?-?-?-?-?-?- JV- u/s on 09/12 showed persistence of pyelectasis and now AC is 85th%. recommend continued fasting glucose testing and to call if levels over 90. has rpt scan in 3 weeks. 10/07/22 -?-?-?-?-?-?-?-?-?-?-?-?- 36w 0d 263 lb 132/78 -?-?-?-?-?-?-?-?-?-?-?-?- 155 140 -?-?-?-?-?-?-?-?-?-?-?-?- SM- no vb lof go od fm no regular ctx- needs to start insulin waiting for pharmacy. 10/15/22 -?-?-?-?-?-?-?-?-?-?-?-?- 37w 1d 266 lb 4 oz 121/79 Nega tive -?-?-?-?-?-?-?-?-?-?-?-?- Negative 130 40 Cephalic -?-?-?-?-?-?-?-?-?-?-?-?- JV- still has no t started insulin. she is worried about bottoming out at night. plan for am NPH for a few days. return thursday for rpt nst and discuss. plan IOL either or . 10/17/22 -?-?-?-?-?-?-?-?-?-?-?-?- 37w 3d 264 lb 4 oz 115/77 Nega tive -?-?-?-?-?-?-?-?-?-?-?-?- Negative 130 -?-?-?-?-?-?-?-?-?-?-?-?- SM- no vb lof NS T done and gbs 10/21/22 -?-?-?-?-?-?-?-?-?-?-?-?- 38w 0d 265 lb 2 oz 115/60 -?-?-?-?-?-?-?-?-?-?-?-?- 130 0.5 -?-?-?-?-?-?-?-?-?-?-?-?- SM- no vb lof go od fm no regular ctx set up IOL NST FHR Rate Baby A Baseline: 130 Variability:: Moderate Accelerations:: 15 x 15 Decelerations:: None NST Reactive:: Yes FHR Category:: Category I ROS Cardiovascular Cardiovascular: Denies abdominal pain, chest pain, diaphoresis or dyspnea Genitourinary Genitourinary: Reports change in urinary stream Musculoskeletal Musculoskeletal: Reports none Integumentary Integumentary: Reports none Neurologic Neurologic: Reports none Psychiatric Psychiatric: Reports none Endocrine Endocrinology: Reports none Hematologic/Lymphatic Hematologic/Lymphatic: Reports none Allergic/Immunologic Allergic/Immunologic: Reports none Vital Signs Vital Signs Vital Signs: 10/27/22 19:42 10/27/22 19:42 10/27/22 19:42 Temperature Temperature Source Pulse Rate 108 H Blood Pressure 132/65 H BP Systolic 132 BP Diastolic 65 Pulse Ox 97 10/27/22 19:42 10/27/22 19:42 10/27/22 19:42 Temperature 97.7 F L Temperature Source Temporal Pulse Rate 103 H Blood Pressure BP Systolic BP Diastolic Pulse Ox 10/27/22 20:59 10/27/22 21:00 10/27/22 21:00 Temperature Temperature Source Pulse Rate 101 H Blood Pressure 139/69 H BP Systolic 139 BP Diastolic 69 Pulse Ox 98 10/27/22 21:00 10/27/22 21:00 10/27/22 22:37 Temperature 97.9 F Temperature Source Temporal Pulse Rate Blood Pressure 130/75 H BP Systolic 130 BP Diastolic 75 Pulse Ox 10/27/22 22:37 10/27/22 22:37 10/27/22 22:38 Temperature Temperature Source Temporal Pulse Rate 101 H 99 Blood Pressure BP Systolic BP Diastolic Pulse Ox 10/27/22 22:38 10/27/22 22:37 10/28/22 00:32 Temperature 97.1 F L Temperature Source Pulse Rate Blood Pressure 123/90 H BP Systolic 123 BP Diastolic 90 Pulse Ox 97 10/28/22 00:32 10/28/22 00:33 10/28/22 00:33 Temperature Temperature Source Pulse Rate 100 100 Blood Pressure BP Systolic BP Diastolic Pulse Ox 97 10/28/22 00:32 10/28/22 00:32 10/28/22 02:52 Temperature 97.3 F L Temperature Source Temporal Pulse Rate Blood Pressure 110/56 L BP Systolic 110 BP Diastolic 56 Pulse Ox 10/28/22 02:52 10/28/22 02:52 10/28/22 02:52 Temperature Temperature Source Temporal Pulse Rate 94 Blood Pressure BP Systolic BP Diastolic Pulse Ox 97 10/28/22 02:52 Temperature 97.3 F L Temperature Source Pulse Rate Blood Pressure BP Systolic BP Diastolic Pulse Ox Weight Weight: 266 lb 8.622 oz Body Mass Index (BMI) 47.2 Physical Exam Const alert, oriented x3 and no apparent distress General Appearance: cooperative, comfortable and well kempt Orientation / Consciousness: awake and oriented to person Exam Limitations: no limitations HEENT normocephalic Neck full ROM Chest inspection of chest normal Resp normal respiratory effort, normal air movement and no retractions Effort and Inspection: able to speak in complete sentences and symmetric chest movement Cardio regular rate Peripheral Pulses: pulses 2+ throughout GI normal to inspection, nondistended, normoactive bowel sounds Inspection: gravid no CVA tenderness and appearance of the vagina normal External Female Exam: normal appearance of the urethra; Negative for external lesion OB / External & Speculum: external exam normal Manual OB Exam: estimated gestational size appropriate and presentation cephalic Uterus Palpation: Negative for uterus tender Extremity normal to inspection Skin no rashes or lesions noted Neuro deep tendon reflexes 2+ bilaterally and gait normal Motor Exam: strength 5/5 throughout and clonus absent Psych Activity / Motor Behavior: appropriate eye contact Speech: normal speech Labs Labs Labs: Blood Type A POSITIVE Antibody Screen NEGATIVE Hct 36.6 % (37-47) L Hgb 11.6 g/dL (12.0-15.0) L Syphilis Total Ab Non-reactive Rubella IgG Antibody Reactive (Nonreactive) Hep Bs Antigen Non-Reactive (Nonreactive) Chlamydia DNA (YEN) Negative (Negative) Neisseria gonorrhoeae DNA (YEN) Negative (Negative) HIV 1&2 Antibody Non-Reactive (Nonreactive) Glucose 1 Hr 50 gm 138 mg/dL (70-140) Group B Strep DNA Negative (Negative) Rhogam given: No Assessment & Plan (1) Supervision of high risk , antepartum: COMMENT: [id number], JEFFREY 11/04/22, boy Darek Hair Emerson Spouse Jurgen (2) Obesity affecting : COMMENT: early gct ordered (3) Gestational diabetes: COMMENT: late diagnosis based on LGA and elevated fasting levels, insulin started. 2x weekly nsts and delivery at 39 weeks. growth 57% PLAN: monitor glucose per protocol (4) GBS (group B Streptococcus carrier), +RV culture, currently : COMMENT: PCN in labor (5) Parvovirus exposure: COMMENT: titers ordered to be drawn on l and d due to recent exposure (6) pyelectasis: COMMENT: right 8.9. Follow up 09/11/21 MFM Right now WNL. Left now 9.8. Rpt MFM US 4 wk to recheck kidney and growth. 10/12:left kidney still at 9 mm. Needs pediatric consult. (7) Encounter for induction of labor: PLAN: cytotec IOL routine admission orders PLAN: Plan Dr Martinez updated admission, exam and poc. agrees with cytotec iol overnight.
[2022-10-28 06:41] LABS: Bedside Glucose 92 mg/dL (74-106)
--- NOTE | 2022-10-28 09:43 | PN_ITS ---
Progress Note pt is comfortable in bed. Nurses report at 6:30 that the cervix is still long and 1 cm, station not identified. 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 current tracing: FHT: Moderate variability reactive no decelerations category I tracing [place]: occasional Contractions bedside ultrasound shows the head in the left mid to upper quadrant. A/P: Breech/transverse presentation- pt declines a version will proceed with section today.
[2022-10-28 10:50] LABS: Bedside Glucose 74 mg/dL (74-106)
[2022-10-28] MEDS: Acetaminophen 500 MG Tablet PO (10:54)
[2022-10-28] MEDS: Lactated Ringers 1,000 ML 999 ML IV (11:15)
[2022-10-28] MEDS: Lactated Ringers 1,000 ML 150 ML IV (12:17)
--- NOTE | 2022-10-28 12:46 | PCM.DC ---
Discharge Instructions Diet Discharge Diet: No restrictions Activity Discharge Activity: May Not Drive (for 2 weeks or while taking narcotic pain medications.), May Shower and May Take a Tub Bath (in 7 days.) May resume sexual activity in: 4-6 weeks Weight Bearing Status: Full weight bearing Lifting Restrictions: 20 pounds Dressing / Incision Call your doctor if your incision/area has: Continuous Slow Oozing, Sudden Increased Bleeding, Increased Pain/ Swelling, Increased Redness and Foul Smelling Discharge Call your doctor if you observe: Fever of 101 or Higher and Using more than 1 pad per hour Suture Line Care: Avoid Pulling/Pushing and Avoid Pinching/Bending Cleanse incision/area with: Soap & Water and Keep Dressing Clean & Dry Follow Up Care Please Follow Up With: Jailene Leal DO When: Call [phone] to make an appointment for an incision check in 1-2 weeks. Test Results: Test results from this visit will be discussed in further detail at your follow-up appointment, if applicable. Discharge Plan Admission Admit Date/Time: 10/27/22 18:50 Primary Reason for Your Visit: section Attending Provider: Mikaela Villanueva Primary Care Provider: Treva Perry NP Discharge Orders/Prescriptions Prescriptions: New hydrocodone-acetaminophen 5-325 mg tablet 1 tab PO Q4H PRN (Reason: pain) 7 Days Qty: 30 0RF naproxen 500 mg tablet 500 mg PO BID PRN (Reason: pain) Qty: 30 0RF No Action atomoxetine 40 mg capsule 40 mg PO DAILY PNV cmb 96-zfoi-QI-omega-3-dha 41-1-404-200 mg combo pack 1 pkg PO DAILY insulin NPH isoph U-100 human 100 unit/mL suspension 5 unit subcut QPM (DME) insulin syr/ndl U100 half jennifer 0.5 mL 29 gauge x 1/2 syringe See Rx Instructions .Route Rx Instructions: As directed Referrals / Follow Up: Treva Perry NP, [facility] [Primary Care Provider] - Disposition Disposition (needs filled in before D/C Order can be placed): Home, Self Care
[2022-10-28] MEDS: Sodium Citrate/Citric Acid 30 ML UDC PO (12:49)
[2022-10-28] MEDS: Oxytocin 15 Units/NS 250ml 15 UNITS/250 ML IV.SOLN 83 UNITS IV (14:15)
--- NOTE | 2022-10-28 14:38 | FALS_PTH ---
PATIENT: CIRILO GARCIA LOC: [facility] U#:[id number] AGE/SX: 32/F ROOM: WP003 RE10/27/[address]: Dr. Jailene Leal DO : 1990 BED: 1 DIS: 10/30/2022 SPEC #: [id number] RECD: 10/28/22 14:51 STATUS: ORLIN DAVIDSONAdriano #: [id number] CANDACE: 10/28/22 14:[address]: Jailene Leal DEPT: SURGICAL PATHOLOGY RECD BY: Cris Ivey ENTERED: 10/29/22 12:17 SP TYPE: FALL TUBES OTHR DR: JOLIE Castillo Tissues: Fallopian tube Procedures: Surgery Specimen Level II HEADER OPERATION: Tubal ligation PRE-OP DIAGNOSIS: Sterilization TISSUE SUBMITTED: Fallopian tubes MICROSCOPIC DIAGNOSIS Bilateral fallopian tubes, salpingectomy: Bilateral fallopian tubes, no pathologic diagnosis. Left paratubal cyst. SJ:jyothi 10/30/2022 MICROSCOPIC DESCRIPTION Slides are reviewed. GROSS DESCRIPTION Received in fixative is one container labeled with the patient's name and designated bilateral fallopian tubes, right fallopian tube with suture. The specimen consists of bilateral fallopian tubes including fimbrial ends. The right fallopian tube measures 7.0 cm in length and up to 1.0 cm in diameter and left fallopian tube measures 6.0 cm in length and 1.0 cm in diameter. Sections reveal unremarkable cut surfaces. The left fallopian tube also shows a paratubal cyst measuring 0.5 cm in greatest dimension. Shipfitters Supervisor sections are submitted in two cassettes as follows: 1 ? right fallopian tube, 2 ? left fallopian tube and paratubal cyst. / KENTON:jyothi 10/29/2022 TC:4 CPT: 05813 x2
[2022-10-28 14:53] LABS: Pathology Specimen OB SEE PATHOLOGY REPORT
[2022-10-28] MEDS: 0.9% Saline Lock 10 ML Syringe IV (15:12)
[2022-10-28] MEDS: Ketorolac 30 MG/ML Syringe IV ×2 (15:13→20:56)
--- NOTE | 2022-10-28 15:26 | OP.PCM_ITS ---
Assessment & Plan (1) : QUALIFIERS: Weeks of gestation: 38 weeks Qualified Code(s): Z3A.38 - 38 weeks gestation of COMMENT: nl anatomy Echo recommended/normal. 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 (4) Obesity affecting : COMMENT: early gct ordered (5) Gestational diabetes: COMMENT: late diagnosis based on LGA and elevated fasting levels, insulin started. 2x weekly nsts and delivery at 39 weeks. growth 57% (6) GBS (group B Streptococcus carrier), +RV culture, currently : COMMENT: PCN in labor (7) Parvovirus exposure: COMMENT: titers ordered to be drawn on l and d due to recent exposure (8) pyelectasis: COMMENT: right 8.9. Follow up 09/11/21 MFM Right now WNL. Left now 9.8. Rpt MFM US 4 wk to recheck kidney and growth. 10/12:left kidney still at 9 mm. Needs pediatric consult. (9) Breech presentation: Maternal Data Information JEFFREY Calculator Estimated Delivery Date Method Current WG Current Estimate 11/04/22 LMP (Certain) 39w 0d Other Estimates 11/18/22 Ultrasound #1 37w 0d 11/06/22 Ultrasound #2 38w 5d Details Operative Information Date of Procedure: 10/28/22 Pre-Operative Diagnosis: @ 39 weeks 0d days, breech presentation, gestational diabetes, desires permanent sterilization Post-Operative Diagnosis: @ 39 weeks 0d days, breech presentation, gestational diabetes, desires permanent sterilization Classification: ANTOINETTE Procedure Type: low transverse nursing techn #1: Monica Velasco Type of Anesthesia: Spinal Anesthesiologist: Carmelo Bashir Antibiotic Given: Ancef 3 grams IV x1 Drain: Katz to straight drain Estimated Blood Loss: 700cc Findings Description of Procedure: The patient is a a 32 y/o whp presented for induction of labor due to history of gestational diabetes. She was started on cytotec 25 mcg and then 50 mcg. Upon her cervical exam at 6:30 am the fetus was found to be in the breech presentation. A was recommended. The patient is also requesting a tubal ligaiton. Spinal anesthesia was placed without difficulty. Katz catheter was placed. The patient was placed in the dorsal supine position with leftward tilt. Patient was prepped and draped in the normal sterile fashion. Pfannenstiel skin incision was made with the scalpel and carried through to the underlying layer of fascia with the scalpel. Fascia was nicked in the midline and the incision extended laterally. The peritoneum was entered digitally. The incision was stretched and a low transverse uterine incision was made with the scalpel. The infant's feet were grasped and deliered up to the 's waist. The anterior shoulder was delivered with a sweep, the was turned counterclockwise and the posterior shoulder was swept and delivered . The head was then delivered atraumatically with the help of fundal pressure. The cord was clamped and cut and the was handed off to awaiting nurse. The cord was found to have a true knot in the cord. The placenta was delivered spontaneously immediately following and was noted to be intact and have a three- vessel cord. The uterus was exteriorized cleared of all clots and debris, and the incision was closed using #1 Vicryl. The ovaries and fallopian tubes were noted to be within normal limits. A bilateral salpingectomy was then performed by grasping the tube and cauterizing and cutting the underlying mesosalpinx to the level of the uterus. The tube was remove entirely and the same procedure was performed on the opposite side. The uterus was returned to the maternal abdomen and gutters were cleared of all clots and debris. The peritoneum was closed with 3-0 Monocryl in a running fashion. Gloves were changed prior to fascial closure. Fascia was closed with 0 PDS in a running fashion. Subcutaneous tissue was copiously irrigated and the skin was closed with 3-0 Monocryl in a subcuticular fashion. Mepilex dressing was applied without complication. Patient was taken to recovery in stable condition. Presentation: Positive for Footling Breech Amniotic Membrane Rupture Type: Spontaneous Amniotic Fluid Description: Clear Placental Delivery Description: Manual Removal Placenta Disposition: [facility] Cord Vessel Description: 3 Vessels Cord Entanglement: True Knot(s) (x 1 ) Infant A Gender: Male (1 minute): 9 (5 minute): 10 Delayed Cord Clamping: Yes Complications Risks of Surgery Discussed w/Patient: Bleeding, Anesthesia Risks, Infection, Need for Future C-Sections, Permanency, Failure Rate of 1 to 2%, Injury to surrounding structure(s) including bowel and bladder and Availability of other non-permanent control options Multi Select Codes Urinary/Genital Urinary/Genital CPT Codes: 26912 Delivery global pkg and Other Procedure See Report (bilateral salpingectomy)
[2022-10-28 15:50] LABS: Bedside Glucose 90 mg/dL (74-106)
[2022-10-28] MEDS: HYDROcodone Bitartrate/Apap 5/325 Tablet PO ×3 (16:46→22:37)
[2022-10-28] MEDS: Lactated Ringers 1,000 ML 100 ML IV (17:18)
--- NOTE | 2022-10-28 19:10 | NURSING ---
182: Dr. Leal notified that pt tearful and in 6/10 pain. MD to put in orders to increase pts pain medication.
[2022-10-28 21:11] LABS: Bedside Glucose 109 mg/dL (74-106)
[2022-10-28] MEDS: Senna/Docusate Sodium 1 Tablet PO (22:37)
[2022-10-29] VITALS (7 sets, daily range): BP systolic 108–128; BP diastolic 41–58; PULSE 77–103; RESP 16–18; TEMP 36.3–36.9; O2SAT 96–99
[2022-10-29] MEDS: Enoxaparin 40 MG/0.4 ML Syringe SC (02:21)
[2022-10-29] MEDS: HYDROcodone Bitartrate/Apap 5/325 Tablet PO ×6 (02:40→23:57)
[2022-10-29] MEDS: Ketorolac 30 MG/ML Syringe IV ×2 (02:57→08:38)
[2022-10-29 06:34] LABS: Hematocrit 29.6 % (37-47); Hemoglobin 9.5 g/dL (12.0-15.0); Mean Corp Hgb Conc 32.1 g/dL (32-36); Mean Corpuscular Hgb 29.3 pg (27.0-32.0); Mean Corpuscular Volume 91.4 fL (81-99); Mean Platelet Vol. 9.6 fl (6.2-12.0); Platelet Count 251 K/mm3 (150-450); RBC Distribution Width SD 50.4 fl (35.1-43.9); Red Blood Count 3.24 M/mm3 (4.2-5.4); White Blood Count 9.5 K/mm3 (4.4-11.0)
[2022-10-29 06:40] LABS: Bedside Glucose 80 mg/dL (74-106)
--- NOTE | 2022-10-29 07:56 | PCM.PN.OB ---
Subjective Subjective Patient doing well without complaints. Tolerating PO. Ambulating and voiding without difficulty. Feeding well. Denies chest pain, shortness of breath, calf pain/swelling, fevers, chills, lightheadedness. Objective Data Objective Data Vital Signs: Vital Signs Temp Pulse Resp BP Pulse Ox O2 Del Method 98.0 F 92 16 108/54 L 98 Room Air 10/29/22 06:15 10/29/22 06:15 10/29/22 06:15 10/29/22 06:15 10/29/22 06:15 10/29/22 06:15 Oxygen Delivery Method Room Air Weight: 266 lb 8.622 oz Body Mass Index (BMI) 47.2 Intake & Output: Intake and Output for Last 24 Hours 10/27/22 10/28/22 10/29/22 23:59 23:59 23:59 Intake Total 105 / 105 4339.17 / 4339.17 905 / 905 Output Total 1502 / 1502 650 / 650 Balance 105 / 105 2837.17 / 2837.17 255 / 255 Lab / Micro Data Result Diagrams: 10/29/22 06:12 Labs: Laboratory Results - last 24 hr 10/28/22 10:26: POC Glucose 74 10/28/22 15:17: POC Glucose 90 10/28/22 20:51: POC Glucose 109 H 10/29/22 06:08: POC Glucose 80 10/29/22 06:12: WBC 9.5, RBC 3.24 L, Hgb 9.5 L, Hct 29.6 L, MCV 91.4, MCH 29.3, MCHC 32.1, RDW Std Deviation 50.4 H, RDW Coeff of Chau 15.0 H, Plt Count 251, MPV 9.6 Physical Exam Const alert and oriented x3 HEENT normocephalic Eyes PERRL Neck full ROM Resp normal respiratory effort GI soft to palpation GI Narrative: FF below U. Dressing dry and intact Palpation: tender other (appropriately) Assessment & Plan (1) Status post section: COMMENT: breech presentation 10/28/22- JOSH Torres (2) Gestational diabetes: COMMENT: late diagnosis. PLAN: Plan s/p LTCS PPD # 1 1. routine post care 2. bottle feeding- support given 3. rh positive 4. rubella immune 5. glucose level controlled but will continue qid checks and NPH per Dr Leal
[2022-10-29] MEDS: Insulin NPH Human 100 UNITS/ML PEN SC (08:35)
[2022-10-29] MEDS: 0.9% Saline Lock 10 ML Syringe IV ×2 (08:43→20:10)
[2022-10-29] MEDS: Naproxen 500 MG Tablet PO ×2 (14:35→22:30)
[2022-10-29 14:55] LABS: Bedside Glucose 122 mg/dL (74-106)
[2022-10-29 18:48] LABS: PARVOVIRUS B19 IGG 4.2 index (0.0-0.8); PARVOVIRUS B19 IGM 0.1 index (0.0-0.8)
[2022-10-29] MEDS: Senna/Docusate Sodium 1 Tablet PO (20:09)
[2022-10-29 20:41] LABS: Bedside Glucose 112 mg/dL (74-106)
[2022-10-30 02:00] VITALS: BP 110/45; PULSE 86; RESP 17; TEMP 36.2
[2022-10-30 06:40] LABS: Bedside Glucose 78 mg/dL (74-106)
--- NOTE | 2022-10-30 08:35 | DS.PCM_ITS ---
Providers Date of Admission: 10/27/22 Date of Discharge: 10/30/22 Primary Care Physician: JOLIE Castillo Reason For Visit: PRIMARY C SECTION Diagnosis Discharge Diagnosis (1) Status post section: Status: Acute Code(s): Z98.891 - History of uterine scar from previous surgery (2) Gestational diabetes: Status: Acute Code(s): O24.419 - Gestational diabetes mellitus in , unspecified control Medications at Discharge Home Medications atomoxetine 40 mg capsule 40 mg PO DAILY 09/12/21 PNV-iron 29 mg-folic acid 1 mg-omega3 250 mg-dha 200mg oral combo pack 1 pkg PO DAILY 03/26/22 insulin NPH isoph U-100 human 100 unit/mL subcutaneous suspension 5 unit subcut QPM GDM 10/27/22 insulin syr/ndl U100 half jennifer 0.5 mL 29 gauge x 1/2 10/27/22 hydrocodone-acetaminophen 5-325mg 5mg-325mg 1 tab PO Q4H PRN pain 7 days #30 tabs 10/28/22 naproxen 500 mg tablet 500 mg PO BID PRN pain #30 tabs 10/28/22 docusate sodium 100 mg capsule (Colace) 100 mg PO BID #60 caps 10/30/22 Hospital Course Operations section and - Summary of Care Provided Minutes Spent on Discharge: 15 Hospital Course: The patient was admitted on 10/27/22 for IOL, however was found to be breech after 12 hours of cytotec and was taken for a primary section on 10/28/22. She underwent an uncomplicated procedure and recovered well. On day #1 she was ambulting well but will some pain and minor difficulties with ADL's. On day #2 she was more self sufficient and pain was well controlled. She was discharged to home on ppd#2 in stable condition to continue her insulin as previously prescribed, take oxycodone and naproxen as needed for pain and stool softener. She will return to the office in2 weeks. Physical Exam HEENT normocephalic Resp normal respiratory effort and normal air movement GI soft to palpation, non-tender and non-distended Rectal Exam: other Other Details: Incision is clean, dry, and intact no CVA tenderness Extremity normal to inspection General Extremity: edema bilateral (trace ) Weight / BMI Weight Weight: 266 lb 8.622 oz Body Mass Index (BMI) 47.2 ABG / Lab / Microbiology Data Result Diagrams: 10/29/22 06:12 Laboratory: Laboratory Results - last 24 hr 10/27/22 19:55: Parvovirus B19 IgG Ab 4.2 H, Parvovirus B19 IgM Ab 0.1 10/29/22 14:31: POC Glucose 122 H 10/29/22 20:09: POC Glucose 112 H 10/30/22 06:19: POC Glucose 78 D/C Instructions Discharge Diet: No restrictions May resume sexual activity in: 4-6 weeks Weight Bearing Status: Full weight bearing Call your doctor if your incision/area has: Continuous Slow Oozing, Sudden Increased Bleeding, Increased Pain/ Swelling, Increased Redness and Foul Smelling Discharge Call your doctor if you observe: Fever of 101 or Higher and Using more than 1 pad per hour Suture Line Care: Avoid Pulling/Pushing and Avoid Pinching/Bending Cleanse incision/area with: Soap & Water and Keep Dressing Clean & Dry Please Follow Up With: Jailene Leal DO When: Call [phone] to make an appointment for an incision check in 1-2 weeks. Meaningful Use Info Meaningful Use Diagnoses (Choose all that apply): None applicable Discharge Plan Admission Admit Date/Time: 10/27/22 18:50 Primary Reason for Your Visit: section Attending Provider: Jailene Leal Primary Care Provider: Treva Perry NP Discharge Orders/Prescriptions Prescriptions: New hydrocodone-acetaminophen 5-325 mg tablet 1 tab PO Q4H PRN (Reason: pain) 7 Days Qty: 30 0RF naproxen 500 mg tablet 500 mg PO BID PRN (Reason: pain) Qty: 30 0RF docusate sodium [Colace] 100 mg capsule 100 mg PO BID Qty: 60 0RF No Action atomoxetine 40 mg capsule 40 mg PO DAILY PNV cmb [id number] mg combo pack 1 pkg PO DAILY insulin NPH isoph U-100 human 100 unit/mL suspension 5 unit subcut QPM (DME) insulin syr/ndl U100 half jennifer 0.5 mL 29 gauge x 1/2 syringe See Rx Instructions .Route Rx Instructions: As directed Referrals / Follow Up: Treva Perry [employer], [employer]OGR[employer]IC [employer]ESS [employer]ATE [employer]TER-C [Primary Care Provider] - Disposition Disposition (needs filled in before D/C Order can be placed): Home, Self Care
[2022-10-30 08:40] LABS: Bedside Glucose 114 mg/dL (74-106)
[2022-10-30] MEDS: Naproxen 500 MG Tablet PO (08:42)
[2022-10-30] MEDS: HYDROcodone Bitartrate/Apap 5/325 Tablet PO (08:42)
[2022-10-30 08:52] VITALS: BP 126/65; PULSE 102; RESP 16; TEMP 36.4; O2SAT 96
[2022-10-30] MEDS: Insulin NPH Human 100 UNITS/ML PEN SC (08:54)
[2022-10-30] MEDS: Senna/Docusate Sodium 1 Tablet PO (09:39)
== END 2022-10-30 11:10 | disposition home or self-care (01) | DRG 785 ==
PROVIDERS: Registered Nurse; Admitting Provider Obstetrics & Gynecology; PCP Nurse Practitioner Family; Visit Provider Obstetrics & Gynecology
DX: O32.8XX0 Maternal care for other malpresentation of fetus, not applicable or unspecified (principal); N83.8 Other noninflammatory disorders of ovary, fallopian tube and broad ligament; O34.83 Maternal care for other abnormalities of pelvic organs, third trimester; O24.424 Gestational diabetes mellitus in childbirth, insulin controlled; Z30.2 Encounter for sterilization; O99.824 Streptococcus B carrier state complicating childbirth; Z3A.39 39 weeks gestation of pregnancy; Z37.0 Single live birth; O99.214 Obesity complicating childbirth; O36.63X0 Maternal care for excessive fetal growth, third trimester, not applicable or unspecified; O69.2XX0 Labor and delivery complicated by other cord entanglement, with compression, not applicable or unspecified; O35.8XX0 Maternal care for other (suspected) fetal abnormality and damage, not applicable or unspecified; Z20.828 Contact with and (suspected) exposure to other viral communicable diseases; Z87.59 Personal history of other complications of pregnancy, childbirth and the puerperium; Z86.16 Personal history of COVID-19
CPT/HCPCS: 59025; 59050; 76815; 82962; 85025; 85027; 86747; 86850; 86900; 86901; 88302; 99221; J7120; A4216; G0378; J2405

== ENCOUNTER → 2024-09-14 | Outpatient (CLI) | payer OTHER, SELFPAY ==
[2024-09-14 17:00] LABS: Absolute Lymphocyte Count 3.54 X10^3/uL (0.83-4.51); Absolute Neutrophil Count 5.3 X10^3/uL (2.0-7.7); Basophil# 0.05 X10^3/uL; Basophil% 0.5 % (0-1); Eosinophil# 0.08 X10^3/uL; Eosinophils% 0.8 % (0-5); Hematocrit 41.4 % (37-47); Hemoglobin 13.1 g/dL (12.0-15.0); Lymphocyte # 3.54 X10^3/ul (0.83-4.51); Lymphocyte % 36.2 % (19-41); Mean Corp Hgb Conc 31.6 g/dL (32-36); Mean Corpuscular Hgb 28.7 pg (27.0-32.0); Mean Corpuscular Volume 90.8 fL (81-99); Mean Platelet Vol. 9.8 fl (6.2-12.0); Monocyte# 0.81 X10^3/uL; Monocyte% 8.3 % (0-10); NRBC Flagged by Analyzer 0 % (0-5); Neutrophil # 5.26 X10^3/uL (2.7-7.7); Neutrophil % 53.9 % (47-70); Platelet Count 443 K/mm3 (150-450); RBC Distribution Width CV 14.3 % (11.6-14.6); RBC Distribution Width SD 47.3 fl (35.1-43.9); Red Blood Count 4.56 M/mm3 (4.2-5.4); White Blood Count 9.8 K/mm3 (4.4-11.0)
[2024-09-14 17:28] LABS: T4 Free Direct 0.97 ng/dL (0.76-1.46)
[2024-09-16 04:07] LABS: Thyroid Peroxidase AB 18 IU/mL (0-34)
== END | disposition home or self-care (01) ==
LOC: BWCLAB 15:32
PROVIDERS: PCP Nurse Practitioner Family; Referring Provider Nurse Practitioner Women's Health; Visit Provider Nurse Practitioner Women's Health
DX: N92.0 Excessive and frequent menstruation with regular cycle (principal); Z13.21 Encounter for screening for nutritional disorder; Z13.29 Encounter for screening for other suspected endocrine disorder
CPT/HCPCS: 36415; 82306; 84439; 84443; 85025; 86376